=== PATIENT | female | born 1935 | race Caucasian/White ===

== ENCOUNTER 2020-01-23 14:51 | Outpatient (REF) | payer MEDICARE, SELFPAY ==
--- NOTE | 2020-01-26 08:59 | XR_ITS ---
EXAMINATION: XR LUMBOSACRAL SPINE CLINICAL INFORMATION: Low back pain. COMPARISON: 11/13/2019 lumbar spine radiographs. TECHNIQUE: Three views of the lumbosacral spine. FINDINGS: Mild thoracolumbar levoscoliosis is again seen with apex at L1. There is normal lumbar lordosis and spinal alignment. The patient is status post vertebroplasty at L1 without interval change. Mild vertebral body compression deformities at T11, T12 and L1 have not significantly changed. There is generalized osteopenia. Mild multilevel disc space narrowing is seen. The soft tissues are unremarkable. IMPRESSION: 1. Mild thoracolumbar levoscoliosis, multilevel degenerative changes, multilevel mild vertebral body compression deformities and L1 vertebroplasty without significant interval change.
== END 2020-01-23 14:52 | disposition home or self-care (01) ==
LOC: HO.HMGCX 14:51
PROVIDERS: PCP Internal Medicine; Visit Provider Hospitalist
DX: M54.5 Low back pain (principal)
CPT/HCPCS: 72100

== ENCOUNTER 2020-08-03 11:09 | Outpatient (REF) | payer MEDICARE, SELFPAY ==
--- NOTE | ~2020-08-03 | MM_ITS ---
EXAMINATION: MM SCREENING DIGITAL BREAST TOMOSYNTHESIS, BILATERAL CLINICAL INFORMATION: Screening. Asymptomatic. The lifetime risk of breast cancer based on the Tyrer-Cuzick Model is 1%. COMPARISON: Mammography: 07/04/2019, 02/13/2018 TECHNIQUE: Digital breast tomosynthesis is performed in both the craniocaudal and mediolateral oblique views along with computer-aided detection (CAD). Synthesized 2D images are generated from the tomosynthesis. FINDINGS: There are scattered areas of fibroglandular density (ACR BI-RADS breast composition Category b). There are no significant masses, abnormal calcifications, or other abnormalities. There are scattered bilateral round and vascular calcifications again seen. No significant changes. MM/MM tomosynthesis screening BI IMPRESSION: No mammographic evidence of malignancy. ASSESSMENT: BI-RADS 2: Benign RECOMMENDATION: Routine annual mammography screening. This patient's information was entered into a reminder system with a target due date for their next mammogram.
== END 2020-08-03 11:10 | disposition home or self-care (01) ==
LOC: HO.MAMMO 11:09
PROVIDERS: Visit Provider Internal Medicine
DX: Z12.31 Encounter for screening mammogram for malignant neoplasm of breast (principal)
CPT/HCPCS: 77063; 77067

== ENCOUNTER 2020-09-16 11:12 | Emergency (ER) | payer MEDICARE, SELFPAY ==
--- NOTE | ~2020-09-16 | XR_ITS ---
EXAMINATION: XR ELBOW, RIGHT CLINICAL INFORMATION: Fall, trauma, pain COMPARISON: Radiographs right humerus 09/24/2012 TECHNIQUE: Radiographs right elbow are obtained portably in 4 views. FINDINGS: Examination is limited due to portable technique, arm flexion, and overlying dressing. There is a comminuted intercondylar fracture distal humerus with vertically oriented component to the elbow joint and smaller comminuted fracture fragments. Major fracture fragments are distracted by at least 1 cm. The proximal radius and ulnar appear grossly intact. There is no dislocation. Old hardware again noted with intramedullary yoav in the humerus and distal interlocking screw. Humeral hardware is proximal to the acute humeral fracture. There is also plate and screws involving the proximal ulnar. XR/XR elbow RT 2V IMPRESSION: Comminuted intercondylar fracture distal humerus. Examination limitations.
--- NOTE | ~2020-09-16 | CT_ITS ---
EXAMINATION: CT HEAD WITHOUT CONTRAST CLINICAL INFORMATION: Fall, trauma COMPARISON: CT head noncontrast 09/17/2011. TECHNIQUE: Contiguous axial imaging was performed from the skull base to vertex without intravenous administration of contrast. Additional 2-D coronal and sagittal reformatted images are generated on the CT workstation and uploaded to PACS. This CT examination was performed using dose optimization techniques as appropriate, variously including the following: *Automated exposure control *Adjustment of mA and/or kV according to patient size (this includes techniques or standardized protocols for targeted exams where dose is matched to indication/reason for exam; i.e. extremities or head) *Use of iterative reconstruction technique DLP: 694 mGy-cm FINDINGS: There is no intracranial hemorrhage, hematoma, or extra-axial fluid collection. There are mild to moderate generalized atrophic changes with prominence of the cortical sulci, fissures, and cisterns. The ventricles are normal in size. There is no hydrocephalus. No edema or mass effect. There is scattered bilateral asymmetric periventricular white matter gliosis consistent with small vessel ischemic changes, greatest adjacent to the frontal horn. 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 There is no visible acute territorial infarct or mass lesion. The calvarium appears intact. There is no pneumocephalus or orbital emphysema. The visualized sinuses and middle ears and mastoid air cells show no significant mucosal thickening. There are no air-fluid levels. CT/CT head/brain wo con IMPRESSION: 1. No acute intracranial abnormality. 2. Atrophic changes with periventricular white matter gliosis.
--- NOTE | ~2020-09-16 | CT_ITS ---
EXAMINATION: CT CERVICAL SPINE WITHOUT CONTRAST CLINICAL INFORMATION: Fall, trauma, pain COMPARISON: CT had noncontrast 09/16/2020 TECHNIQUE: Multidetector volumetric CT imaging of the cervical spine is performed without contrast in the axial plane. Additional 2D reformatted coronal and sagittal images are generated on the CT workstation and uploaded to PACS. This CT examination was performed using dose optimization techniques as appropriate, variously including the following: *Automated exposure control *Adjustment of mA and/or kV according to patient size (this includes techniques or standardized protocols for targeted exams where dose is matched to indication/reason for exam; i.e. extremities or head) *Use of iterative reconstruction technique DLP: 193 mGy-cm FINDINGS: There is no vertebral compression fracture, fracture line, spondylolisthesis, or prevertebral soft tissue swelling. The craniocervical junction appears normal. The odontoid appears intact. There are degenerative changes between anterior arch C1 and the. Multilevel facet degeneration is present. There is no erosive change. No focal disc narrowing. There are degenerative changes involving the bilateral temporomandibular joints. There is apical pleural-parenchymal scarring. No pneumothorax or subcutaneous emphysema. CT/CT cervical spine wo con IMPRESSION: No acute bony abnormality or prevertebral soft tissue swelling.
[2020-09-16 11:17] VITALS: BP 220/109; BP 224/119; PULSE 87; PULSE 90; RESP 18; TEMP 37.2; O2SAT 94; O2SAT 95; BMI 24.7
--- NOTE | 2020-09-16 11:17 | ED_ITS ---
HPI - Fall General Chief Complaint: Fall Stated Complaint: [facility] FALL W/ELBOW PAIN Time Seen by Provider: 09/16/20 11:17 Source: patient and EMS Mode of arrival: EMS Limitations: no limitations History of Present Illness HPI Narrative: mechanical fall at fire station - injured R elbow already has plates/screws in forearm and yoav in R humerus - also struck head no AC therapy, no LOC MD complaint: fall Onset (ago): minute(s) Fall from: standing Fall witnessed: yes, by bystander Place fall occurred: other (dropping off thank you notes to Fire station) Loss of consciousness: none Prolonged down time: no Symptoms prior to fall: none Context: tripped/slipped Location of injury: head and face Location of injury - extremities: right: elbow Severity: severe Quality: sharp Associated symptoms (after fall): denies Related Data Home Medications Medication Instructions Recorded Confirmed amlodipine 5 mg tablet 5 mg PO DAILY 01/23/20 01/23/20 levothyroxine 50 mcg tablet 50 mcg PO DAILY 01/23/20 01/23/20 metoprolol succinate 25 mg 25 mg PO DAILY 01/23/20 01/23/20 tablet,extended release 24 hr metoprolol succinate 50 mg mg PO Q OTHER DAY PRN 01/23/20 01/23/20 tablet,extended release 24 hr oxycodone-acetaminophen 5 mg-325 tab PO 01/23/20 01/23/20 mg tablet pantoprazole 40 mg tablet,delayed 40 mg PO DAILY 01/23/20 01/23/20 release tramadol 50 mg tablet 50 mg PO Q6H PRN 01/23/20 01/23/20 Previous Rx's Medication Instructions Recorded atorvastatin 10 mg tablet 10 mg PO DAILY #90 tab 03/06/20 Allergies Allergy/AdvReac Type Severity Reaction Status Date / Time lisinopril [LISINOPRIL] Allergy Intermediate COUGH Unverified 01/08/20 14:46 amlodipine Allergy Unknown swelling Verified 11/13/19 00:00 Review of Systems Review of Systems: Constitutional : No Fever, No Chills ENT/Mouth : No Ear Pain, No Hoarseness, No sore throat Eyes: No Eye Pain, No Swelling, No Redness, No Foreign Body Cardiovascular : No Chest Pain, No SOB Respiratory : No Cough, No Dyspnea Gastrointestinal : No Nausea, No Vomiting, No Diarrhea, No abdominal Pain Genitourinary : No Dysuria, No Hematuria Musculoskeletal : positive joint pain, No Myalgias, No Joint Swelling Skin : pos Skin lacerations, No rash, pos abrasions Neuro : No Weakness, No Numbness, No Loss of Consciousness, No Dizziness, No Headache Psych : No Anxiety/Panic, No Depression Heme/Lymph: no easy bruising, no Lymphadenopathy Endocrine : No Polyuria, No Polydipsia All other systems reviewed and are negative [facility] Past Medical History Attestation statement: The following information was validated with the patient. Medical History (Updated 09/16/20 @ 13:43 by Brittany Krishnan DO) GERD (gastroesophageal reflux disease) HLD (hyperlipidemia) HTN (hypertension) Low back pain Social History Social History (Updated 09/16/20 @ 11:48 by Brittany Krishnan DO) Patient Tobacco Use Status: Never used Tobacco Use of substances other than those prescribed or required for medical reasons: No Advance Directives: Yes Advance Directives Information Provided: Yes Advance Directives on File: No Physical Exam Vital Signs: Vital Signs: Last Vital Signs Temp 98.9 F 09/16/20 11:17 Pulse 89 09/16/20 14:45 Resp 16 09/16/20 15:17 BP 190/90 H 09/16/20 14:45 Pulse Ox 96 09/16/20 14:45 Body Mass Index 24.7 Appearance: Alert. Oriented X3. Anxious in pain mild distress Eyes: Pupils equal, round and reactive to light. ENT: Pharynx normal. abrasions to forehead and R side of face Neck: Normal inspection. Neck supple. in c collar CVS: Normal heart rate and rhythm. Pulses normal. Respiratory: No respiratory distress. Breath sounds normal. no chest wall ttp Abdomen: Soft and nontender. Skin: Skin warm and dry. Normal skin color. Normal skin turgor. Extremities: No lower extremity edema. R elbow 5cm laceration/avulsion over olecranon with persistent bleeding and hard fragments seen and felt in wound Neuro: Oriented X 3. No motor deficit. No sensory deficit. Course Course Course Narrative: wound cleansed and irrigated with betadine extensively, sterile dressing and tammie wrap applied 117pm message sent to orthopedics given concern for open fracture Dr. Shaw reports patient needs to be transferred to tertiary center - [facility]opedics here cannot handle this type of injury [place] [facility] [place] repeat call to [facility] 245pm no call back from [facility] at this time will attempt to call [facility] for possible t ransfer 320pm patient would prefer this as her son works there, per staff in ED after calling transfer - [facility] cannot manage this either at this time repeat call to [facility] [place] 330pm they refuse transfer ED to ED until orthopedics calls back 353pm - spoke to patient and family I want to try [facility] which the patient doesn't want to go that far, family states they are attempting transfer to [facility] at this time again through her son. discussed again with orthopedics there they recommend transfer to [facility] 403pm discussed with Dr. Finnegan from orthopedics - recommends transfer to the ED now MDM - Fall MDM Narrative Medical decision making narrative: 84 yo female with mechanical fall resulting in head strike and R elbow laceration/avulsion with outward deformity noted along with prior hardware, labs, CT of head/neck for trauma given age, xrays of R elbow, IV dilaudid for pain, likely discussion with orthopedics given concern for open fracture Lab Data Result diagrams: 09/16/20 12:09 09/16/20 12:09 Labs: Lab Results 09/16/20 09/16/20 09/16/20 Range/Units 12:09 12:09 12:09 WBC 7.1 (4.8-10.8) X10*3/uL RBC 4.01 L (4.20-5.50) X10*6/uL Hgb 13.5 (12.0-16.0) g/dl Hct 39.3 (37-47) % MCV 98.0 (80-98) fL MCH 33.7 H (27.0-33.0) pg MCHC 34.4 (31.0-35.0) g/dl RDW 11.9 (11.0-16.0) % Plt Count 275 (160-400) X10*3/uL MPV 8.8 L (9.4-12.3) fL Immature Gran % (Auto) 0.3 (0.0-0.4) % Neut % (Auto) 60.3 (45-73) % Lymph % (Auto) 27.9 (20-40) % [place] % (Auto) 10.4 (2-11) % Eos % (Auto) 0.7 (0-4) % Baso % (Auto) 0.4 (0-2) % Lymph # (Auto) 2.0 (1.2-4.9) X10*3/uL [place] # (Auto) 0.7 (0.1-1.2) X10*3/uL Eos # (Auto) 0.1 (0.0-0.4) X10*3/uL Baso # (Auto) 0.0 (0.0-0.2) X10*3/uL Abs Immat Gran (auto) 0.02 (0.00-0.03) X10*3/uL Absolute Neuts (auto) 4.3 (2.0-8.3) X10*3/uL Absolute Nucleated RBC 0.000 (0.0-0.012) X10*3/uL Nucleated RBC % (auto) 0.0 (0.0-0.2) /100WBC PT 12.1 (10.8-13.0) SEC INR 1.0 (0.9-1.1) APTT 29.9 (24.1-38.0) SEC Sodium 137 (135-145) mmol/L Potassium 3.8 (3.3-5.1) mmol/L Chloride 102 (96-108) mmol/L Carbon Dioxide 25 (22-29) mmol/L Anion Gap 14 (12-20) BUN 9 (9-16) mg/dL Creatinine 0.69 (0.5-1.4) mg/dL Estim Creat Clear Calc 50.2 Estimated GFR > 60 Random Glucose 119 H (60-115) mg/dL Calcium 9.4 (8.4-10.2) mg/dL COVID-19 (GEOFFREY) (Negative) COVID-19 Clin Com 09/16/20 Range/Units 12:09 WBC (4.8-10.8) X10*3/uL RBC (4.20-5.50) X10*6/uL Hgb (12.0-16.0) g/dl Hct (37-47) % MCV (80-98) fL MCH (27.0-33.0) pg MCHC (31.0-35.0) g/dl RDW (11.0-16.0) % Plt Count (160-400) X10*3/uL MPV (9.4-12.3) fL Immature Gran % (Auto) (0.0-0.4) % Neut % (Auto) (45-73) % Lymph % (Auto) (20-40) % [place] % (Auto) (2-11) % Eos % (Auto) (0-4) % Baso % (Auto) (0-2) % Lymph # (Auto) (1.2-4.9) X10*3/uL [place] # (Auto) (0.1-1.2) X10*3/uL Eos # (Auto) (0.0-0.4) X10*3/uL Baso # (Auto) (0.0-0.2) X10*3/uL Abs Immat Gran (auto) (0.00-0.03) X10*3/uL Absolute Neuts (auto) (2.0-8.3) X10*3/uL Absolute Nucleated RBC (0.0-0.012) X10*3/uL Nucleated RBC % (auto) (0.0-0.2) /100WBC PT (10.8-13.0) SEC INR (0.9-1.1) APTT (24.1-38.0) SEC Sodium (135-145) mmol/L Potassium (3.3-5.1) mmol/L Chloride (96-108) mmol/L Carbon Dioxide (22-29) mmol/L Anion Gap (12-20) BUN (9-16) mg/dL Creatinine (0.5-1.4) mg/dL Estim Creat Clear Calc Estimated GFR Random Glucose (60-115) mg/dL Calcium (8.4-10.2) mg/dL COVID-19 (GEOFFREY) Negative (Negative) COVID-19 Clin Com See Note ECG Data Attestation: I personally reviewed and interpreted this ECG as follows: ECG interpretation date: 09/16/20 ECG interpretation time: 12:04 Interpretation: Rate: 71 Rhythm: NSR [place]: normal , LVH Normal P waves. Normal MICHAEL. Normal QRS complex. ST T wave : normal no PASCALE qTC: normal prior studies: no acute ischemia The study has been interpreted contemporaneously by me. . Critical Care Time Critical Care Time Critical Care Time: Yes Total Critical Care Time: 60 Attestation: medical consult, reassessments, transfer to tertiary care center I attest to this time spent taking care of the patient Discharge Plan Discharge Clinical Impression: Open fracture Fracture, humerus Qualifiers: Encounter type: initial encounter Humerus Location: distal Fracture type: open Laterality: right Patient Disposition: [facility] Transfer Details: [facility] Prescriptions: No Action atorvastatin 10 mg tablet 10 mg PO DAILY Qty: 90 RF: 3 metoprolol succinate 50 mg tablet extended release 24 hr PO Q OTHER DAY PRNRF: 0 pantoprazole 40 mg tablet,delayed release (DR/EC) 40 mg PO DAILY RF: 0 levothyroxine 50 mcg tablet 50 mcg PO DAILY RF: 0 oxycodone-acetaminophen 5-325 mg tablet PO RF: 0 tramadol 50 mg tablet 50 mg PO Q6H PRNRF: 0 amlodipine 5 mg tablet 5 mg PO DAILY RF: 0 metoprolol succinate 25 mg tablet extended release 24 hr 25 mg PO DAILY RF: 0
--- NOTE | 2020-09-16 11:27 | ECG_ITS ---
Test Reason : FALL Blood Pressure : / mmHG Vent. Rate : 071 BPM Atrial Rate : 071 BPM P-R Int : 180 ms QRS Dur : 086 ms QT Int : 422 ms P-R-T Axes : 058 022 036 degrees QTc Int : 458 ms Normal sinus rhythm Possible Left atrial enlargement Left ventricular hypertrophy Abnormal ECG When compared with ECG of 12-FEB-2012 06:48, No significant change was found Referred By: Brittany Krishnan Electronically Signed By:LIBAN PICKENS
[2020-09-16] MEDS: HYDROmorphone HCl 0.5 MG/0.5 ML SYRINGE IVPUSH ×2 (11:37→13:37)
[2020-09-16] MEDS: ondansetron HCL 4 MG/2 ML VIAL IVPUSH (11:37)
[2020-09-16] MEDS: Diphth,Pertus(ACell),Tet Adult 0.5 ML SYRINGE IM (11:39)
[2020-09-16 12:20] LABS: MANUAL DIFF FLAG NO
[2020-09-16 12:22] LABS: Basophils Percent Auto 0.4 % (0-2); Eosinophils Absolute Auto 0.1 X10*3/uL (0.0-0.4); Eosinophils Percent Auto 0.7 % (0-4); Hematocrit 39.3 % (37-47); Hemoglobin 13.5 g/dl (12.0-16.0); Imm Gran Abs Auto 0.02 X10*3/uL (0.00-0.03); Imm Gran Pct Auto 0.3 % (0.0-0.4); Lymphocytes Percent Auto 27.9 % (20-40); Mean Corpuscular HGB Conc 34.4 g/dl (31.0-35.0); Mean Corpuscular Hemoglobin 33.7 pg (27.0-33.0); Mean Platelet Volume 8.8 fL (9.4-12.3); Monocytes Absolute Auto 0.7 X10*3/uL (0.1-1.2); Monocytes Percent Auto 10.4 % (2-11); Neutrophils Absolute Auto 4.3 X10*3/uL (2.0-8.3); Neutrophils Percent Auto 60.3 % (45-73); Platelet Count 275 X10*3/uL (160-400); Red Blood Count 4.01 X10*6/uL (4.20-5.50); Red Cell Distribution Width 11.9 % (11.0-16.0); White Blood Count 7.1 X10*3/uL (4.8-10.8)
[2020-09-16 12:28] LABS: Prothrombin Time 12.1 SEC (10.8-13.0)
[2020-09-16 12:31] LABS: Partial Thromboplastin Time 29.9 SEC (24.1-38.0)
[2020-09-16 12:38] VITALS: BP 199/87; PULSE 85; RESP 18; O2SAT 95
[2020-09-16 12:42] LABS: COVID-19 Test Negative (Negative); IDNOW Serial# 08D9AD1C
[2020-09-16 12:55] LABS: Anion Gap 14 (12-20); Blood Urea Nitrogen 9 mg/dL (9-16); Calcium 9.4 mg/dL (8.4-10.2); Carbon Dioxide 25 mmol/L (22-29); Chloride 102 mmol/L (96-108); Creatinine Clr Calc Pharmacy 50.2; Estimated Glomerular Filt Rate > 60; Glucose Random 119 mg/dL (60-115); Potassium 3.8 mmol/L (3.3-5.1); Sodium 137 mmol/L (135-145)
--- NOTE | 2020-09-16 13:32 | PC.NURSE ---
dr arshad at bedside clenaing the right elbow, new dressing applied because it keeps bleeding through, new wrap applied with tammie wrap for extra pressure this time.
--- NOTE | 2020-09-16 14:04 | PC.NURSE ---
@[phone] DR WILLIS REQUESTS CALL OUT TO [facility] PT TX LINE BELLE ANSWERS, TAKES PT INFO AND CALL BACK NUMBER THEN ASKS TO SPEAK WITH DR ALBA WILLIS TAKES OVER CALL RIGHT AWAY
--- NOTE | 2020-09-16 14:17 | PC.NURSE ---
pt is on bedpan, plan to transfer to [facility]. awaiting accepting physician and RN To rn
[2020-09-16 14:45] VITALS: BP 190/90; PULSE 89; RESP 18; O2SAT 96
--- NOTE | 2020-09-16 14:47 | PC.NURSE ---
PT'S FINGER ARE SLIGHTLY PURPLE/REDISH IN COLOR, HAND ELEVATED O A PILLOW, GOOD BRISK CAPILLARY REFILL. MD RICO
--- NOTE | 2020-09-16 14:47 | PC.NURSE ---
@[phone] DR WILLIS REQUEST CALL OUT TO [facility] PT TX LINE TO CHECK ON STATUS OF PREVIOUS CALL BELLE ANSWERS AND SAYS SHE WILL PLACE ANOTHER PAGE OUT TO THEIR ORTHO
--- NOTE | 2020-09-16 15:09 | PC.NURSE ---
PERRY WRAP REMOVED PER DR WILLIS VERBAL ORDER
[2020-09-16 15:17] VITALS: RESP 16
[2020-09-16] MEDS: HYDROmorphone HCl 1 MG/ML SYRINGE IVPUSH (15:17)
== END 2020-09-16 16:34 | disposition short-term general hospital (02) ==
PROVIDERS: Emergency Provider Emergency Medicine
DX: S42.401B Unspecified fracture of lower end of right humerus, initial encounter for open fracture (principal); S00.90XA Unspecified superficial injury of unspecified part of head, initial encounter; M25.521 Pain in right elbow; M54.2 Cervicalgia; W01.0XXA Fall on same level from slipping, tripping and stumbling without subsequent striking against object, initial encounter; Y93.9 Activity, unspecified; Y92.410 Unspecified street and highway as the place of occurrence of the external cause; Y99.9 Unspecified external cause status; Z20.822 Contact with and (suspected) exposure to COVID-19; Z79.899 Other long term (current) drug therapy
CPT/HCPCS: 36415; 70450; 72125; 73070; 80048; 85025; 85610; 85730; 87635; 90471; 90715; 93005; 96365; 96375; 96376; 99284; J0690; J1170; J2405

== ENCOUNTER 2021-02-11 10:10 | Outpatient (REF) | payer MEDICARE, SELFPAY ==
--- NOTE | 2021-02-11 13:25 | MHC.AU.ANR ---
Adult Audiological Evaluation Date of Visit: 02/11/21 Reason for Appointment: Audiological evaluation due to concern for decreased hearing. Ms. Penaloza reports that her family has noticed a decrease in her hearing. She often has to ask for repetition and her family tells her the TV is very loud. Ms. Penaloza also reports constant bilateral tinnitus that she feels is worse at night. She notes that the tinnitus began a long time ago and she is typically able to ignore it. Does patient feel they have a hearing loss?: Yes If Yes, Which Ear?: Both Ears When Was Hearing Difficulty First Noticed?: ~1 year ago Has hearing been tested previously?: No Hearing Handicap Inventory: HHIE SCORE: 18 Based on HHIE score, patient has: Mild to moderate perceived hearing handicap Ear History: Bothersome Tinnitus/Ringing/Noises in Ears: Both Ears Medical History: Medical History: High Blood Pressure, Thyroid Disease Medical History (Other): Cataract and toric lens surgery left eye in 2012; Stomach ulcer bleed, hospitalized in ICU, cauterized, in 2006; Right elbow surgery in 1999; Right arm/shoulder surgery in 2011; Broken left arm in 2014; Total right knee replacement in 2006; Arthroscopic surgery left knee 2000; Cortisone shot left knee 2001; Compression fracture of the back in 2017; Upper GI endoscopy; Broken collar bone from a fall in 2019; 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 2019; Fall, resulting in broken right elbow and fractured back on 09/16/20 Medication List: Metoprolol 50 mg, Levothyroxine .05 mg; Atorvastatin 10 mg; Pantoprazole 40 mg, Centrum Silver; Glucosamine; Citrical Otoscopy: Right Ear: Unremarkable Left Ear: Unremarkable Tympanometry: Tympanometry performed due to: To assess integrity of the middle ear system Right Ear: Negative Middle Ear Pressure (Type C) Left Ear: Negative Middle Ear Pressure (Type C) Hearing Evaluation: Transducer(s) Used: Insert Earphones, Bone Conduction Method: Conventional Audiometry Stimuli Used: Pure Tones Right Ear: Description of Hearing: Normal hearing at 250 Hz, sloping to a mild to severe sensorineural hearing loss from 500-8000 Hz. Left Ear: Description of Hearing: Normal hearing at 250 Hz, sloping to a mild to severe sensorineural hearing loss from 500-8000 Hz. Speech Recognition Threshold (SRT): Method Used: Monitored Live Voice Stimuli Used: Spondee Words Right Ear: 35 dBHL Left Ear: 40 dBHL Word Discrimination: Method: Recorded Lists Word Lists Used: NU-6 Right Ear: 92% at 80 dBHL Left Ear: 92% at 80 dBHL Recommendations: Audiological re-evaluation in one year. Trial with amplification is recommended. Medical clearance from a physician is required before fitting. Hearing Aid Fitting will be scheduled when all materials arrive. Ms. Penaloza is considered a good candidate for hearing aid use based on the type and degree of her hearing loss. Discussed hearing aid options. She would like to purchase rechargeable in-the-ear style hearing aids. Earmold impressions were taken without incident. Hearing aids are being ordered and she will be contacted to schedule a hearing aid fitting when they arrive. Diagnosis: Primary Diagnosis: H90.3 Bilateral Sensorineural Hearing Loss Services Performed: Services Performed: Comprehensive Audiological Evaluation (CPT 30499) Tympanometry (CPT 18913) Signature: Provider: Trena Stewart, CCC-A
--- NOTE | 2021-02-11 13:33 | MHC.AU.MED ---
Medical Clearance for Hearing Instrumentation Date: 02/11/21 Patient Name: Lupe Penaloza Date of : 1935 Primary Care Provider: Referring Provider: Janessa Devlin NP We have seen your patient on 02/11/21 and have determined that they are a candidate for amplification (See accompanying report). Specifically, they would benefit from: Hearing aid use in both ears There is a statute that addresses Medical Evaluation Requirements prior to fitting a patient with a hearing aid. According to [place] statute 265 CMR:6.03(1), (a) General. Except as provided in 265 CMR 6.03(1)(b), a hearing screen coordinator shall not sell a hearing aid unless the prospective user has presented to the hearing screen coordinator a written statement signed by a licensed physician that states that the patient's hearing loss has been medically evaluated and the patient may be considered a candidate for a hearing aid. The medical evaluation must have taken place within the preceding six months. Please note: Due to the [place] Statute referenced above, we cannot accept a signature other than that of a licensed physician. DIRECTOR E LEARNING and PA signatures cannot be accepted. I am in agreement with the above recommendation. There is no medical contraindication for hearing instrumentation. Physician Signature Date Physician Name (Printed)
== END 2021-02-11 10:11 | disposition home or self-care (01) ==
LOC: HO.SH 10:10
PROVIDERS: Visit Provider Registered Nurse
DX: H90.3 Sensorineural hearing loss, bilateral (principal)
CPT/HCPCS: 92557; 92567

== ENCOUNTER 2021-02-11 11:33 | Outpatient (REF) | payer SELFPAY ==
--- NOTE | 2021-02-11 13:32 | MHC.AU.HAS ---
Hearing Aid Evaluation Date of Visit: 02/11/21 Historical Information: Description of Hearing: Mild sloping to severe sensorineural hearing loss bilaterally. Current personal amplification information, if applicable: None Summary: Binaural amplification is recommended to help facilitate improved communication based on the type and degree of Ms. Penaloza's hearing loss. She has not previously used hearing aids. Discussed hearing aid styles and technologies at length. She feels that ITE style hearing aids would work best for her. She is interested in rechargeability. She uses a flip phone and is not interested in any Bluetooth connectivity. Hearing Aid Prescription: Based on the individual?s shared listening needs, communication environments, dexterity, desire for connectivity, and personal preferences, the following prescription for amplification has been made: Right ear: School Adjustment Counselor: [employer] Model: Evolv AI 200 ITC-R Battery Size: Rechargeable Color: [place] Left ear: Left ear prescription to be same as Right Hearing Aid above: School Adjustment Counselor: [employer] Model: Evolv AI 2000 ITC-R Battery Size: Rechargeable Color: [place] Plan of Care: Earmold Impressions Taken. Medical Clearance to be requested from PCP/ENT. Hearing Instrument Fitting to be scheduled when materials arrive. Hearing aids ordered today. Patient paid $350 nonrefundable deposit. Primary Diagnosis: H90.3 Bilateral Sensorineural Hearing Loss Signature: Provider: Trena Stewart, MELVIN-A
== END 2021-02-11 11:34 | disposition home or self-care (01) ==
LOC: HO.HAP 11:33
PROVIDERS: PCP Registered Nurse; Visit Provider Registered Nurse
DX: Z46.1 Encounter for fitting and adjustment of hearing aid (principal); H90.3 Sensorineural hearing loss, bilateral
CPT/HCPCS: 92591

== ENCOUNTER 2021-02-24 09:31 | Outpatient (REF) | payer SELFPAY | END 2021-02-24 09:32 | disposition home or self-care (01) | LOC: HO.HAP 09:31 | PROVIDERS: Visit Provider Internal Medicine | DX: Z46.1 Encounter for fitting and adjustment of hearing aid (principal); H90.3 Sensorineural hearing loss, bilateral | CPT/HCPCS: V5260; V5299 ==

== ENCOUNTER 2021-03-10 08:59 | Outpatient (REF) | payer SELFPAY | END 2021-03-10 09:00 | disposition home or self-care (01) | LOC: HO.HAP 08:59 | PROVIDERS: Visit Provider Registered Nurse | DX: Z13.89 Encounter for screening for other disorder (principal) ==

== ENCOUNTER 2021-12-28 15:43 | Outpatient (REF) | payer SELFPAY | END 2021-12-28 15:44 | disposition home or self-care (01) | LOC: HO.HAP 15:43 | PROVIDERS: Visit Provider Registered Nurse | DX: Z13.89 Encounter for screening for other disorder (principal) ==

== ENCOUNTER 2022-06-28 20:28 | Emergency (ER) | payer MEDICARE, SELFPAY ==
--- NOTE | ~2022-06-28 | CT_ITS ---
EXAMINATION: CT cervical spine wo IV con, CT head/brain wo IV con INDICATION INFORMATION: Reason for Exam Fall COMPARISON: CT head without contrast 09/16/2020 TECHNIQUE: Separate noncontrast CT examinations of the head and cervical spine were performed. Coronal and sagittal images were created for each examination at the technologist workstation. This CT examination was performed using dose optimization techniques as appropriate, variously including the following: *Automated exposure control *Adjustment of mA and/or kV according to patient size (this includes techniques or standardized protocols for targeted exams where dose is matched to indication/reason for exam; i.e. extremities or head) *Use of iterative reconstruction technique DLP: 992.39 mGy-cm FINDINGS: Head: No acute osseous or soft tissue abnormality. The mastoid air cells and visualized portions of the paranasal sinuses are well aerated. There is no evidence of acute intracranial hemorrhage or territorial infarction. No abnormal mass effect or midline shift is seen. [place] to white matter differentiation is well preserved. No extra-axial fluid collections are identified. No hydrocephalus. Proportional prominence of the ventricles and sulcal spaces is consistent with mild volume loss. Patchy periventricular and deep white matter hypoattenuation is consistent with moderate small vessel ischemic changes. Cervical spine: There is no evidence of acute cervical spine fracture. Vertebral bodies remain normal in height. Stable multilevel cervical spondylosis. No pre- or paravertebral soft tissue abnormality is identified. Visualized portions of the lung apices are unremarkable. The thyroid gland is unremarkable. CT/CT cervical spine wo IV con IMPRESSION: 1. No acute intracranial abnormality. 2. No cervical spine fracture or traumatic malalignment.
--- NOTE | ~2022-06-28 | XR_ITS ---
EXAMINATION: XR HIP, RIGHT CLINICAL INFORMATION: Fall. COMPARISON: 10/11/2019 TECHNIQUE: AP and frog-leg lateral views of the right hip. AP view of the pelvis. FINDINGS: Mild axial joint space narrowing at both hips with small marginal osteophytes. No fracture or malalignment. Bones are osteopenic. Mild osteoarthritis noted in the SI joints. There is degenerative spondylosis in the lower lumbar spine. No acute osseous findings. Calcific atherosclerosis is present in the femoral arteries. XR/XR hip RT w [id number] IMPRESSION: 1. No acute fracture or malalignment. 2. Mild osteoarthritis in the hips and SI joints.
[2022-06-28 20:45] VITALS: BP 161/80; PULSE 97; RESP 16; O2SAT 94; BMI 23.6
--- NOTE | 2022-06-28 21:55 | ED_ITS ---
HPI - Extremity Injury (Lower) General Chief Complaint: Extremity Injury, Lower Stated Complaint: RIGHT HIP PAIN Time Seen by Provider: 06/28/22 20:55 Source: patient Mode of arrival: ambulatory Limitations: no limitations History of Present Illness HPI Narrative: 86-year-old female presents to the emergency room after falling to her right hip yesterday. She states she has had continued pain she states she was going to deliver a cake to a neighbor when she fell onto her right knee she states that since then she has had increasing pain to the hip and said come in for evaluation she denies hitting her head she denies loss conscious denies nausea vomiting or diarrhea. MD complaint: hip injury Related Data Home Medications Medication Instructions Recorded Confirmed amlodipine 5 mg tablet 5 mg PO DAILY 01/23/20 01/23/20 metoprolol succinate 25 mg 25 mg PO DAILY 01/23/20 01/23/20 tablet,extended release 24 hr metoprolol succinate 50 mg mg PO Q OTHER DAY PRN 01/23/20 01/23/20 tablet,extended release 24 hr oxycodone-acetaminophen 5 mg-325 tab PO 01/23/20 01/23/20 mg tablet pantoprazole 40 mg tablet,delayed 40 mg PO DAILY 01/23/20 01/23/20 release tramadol 50 mg tablet 50 mg PO Q6H PRN 01/23/20 01/23/20 Previous Rx's Medication Instructions Recorded atorvastatin 10 mg tablet 10 mg PO DAILY #90 tabs 03/06/20 levothyroxine 50 mcg tablet 50 mcg PO DAILY #90 tabs 06/02/21 Allergies Allergy/AdvReac Type Severity Reaction Status Date / Time lisinopril [LISINOPRIL] Allergy Intermediate COUGH Verified 06/28/22 20:44 amlodipine Allergy Unknown swelling Verified 06/28/22 20:44 Review of Systems Review of Systems: Review of systems: General: Patient denies any fever chills recent illness or falls Musculoskeletal: Denies back pain or body aches or other injuries HEENT: denies headache, runny nose, ear pain Respiratory: denies shortness of breath, cough Cardiovascular: no chest pain or palpitations : denies dysuria, frequency Abdomen: no nausea vomiting denies abdominal pain Extremities: no swelling, right hip pain Skin: no diaphoresis Yes all other systems are reviewed and are negative [facility] Past Medical History Medical History (Updated 06/28/22 @ 21:58 by Nathan Kay DO) GERD (gastroesophageal reflux disease) HLD (hyperlipidemia) HTN (hypertension) Low back pain Social History Social History (Updated 09/16/20 @ 11:48 by Savannah Krishnan DO) Patient Tobacco Use Status: Never used Tobacco Advance Directives: Yes Advance Directives Information Provided: No Advance Directives on File: No Physical Exam Vital Signs: Vital Signs: Last Vital Signs Pulse 97 06/28/22 20:45 Resp 16 06/28/22 20:45 BP 161/80 H 06/28/22 20:45 Pulse Ox 94 06/28/22 20:45 O2 Del Method 06/28/22 20:45 BMI result Body Mass Index 23.6 General: Well-appearing well-nourished in no signs of distress HEENT: Normocephalic atraumatic Neck: No signs of JVD, no masses no tenderness or lymphadenopathy Cardiovascular: Regular rate and rhythm Respiratory: Clear to auscultation bilaterally Abdomen: Soft nontender no masses Extremities: Normal pedal pulses no signs of edema no tenderness to palpation able to lift up both legs Skin: Dry warm no rashes Back: No tenderness full ROM Medical Decision Making Differential Diagnosis Differential Diagnoses: The differential diagnosis associated with the presentation includes Concern for hip fracture versus contusion the patient for an x-ray Independent Interpretation I performed an independent interpretation of an: Plain X-Ray and CT Scan Radiology Impression Discussion of test interpretation with radiology: I have reviewed the radiologist's reading. Independent Historian Clinical information obtained from an independent historian. History obtained from or confirmed by: Other External Record Review External record reviewed: Inpatient record Discharge Plan Discharge Clinical Impression: Hip strain, Fall Patient Disposition: Home, Self-Care Instructions: Fall Prevention (ED), Groin Strain (ED), Hip Contusion (ED) Additional Instructions: You were seen today in the emergency department or it right hip. He had an x-ray and CTs done all were negative. Paragraph please take Tylenol ibuprofen for pain if you have any other further complaints or concerns please do not hesitate to return to the emergency department. Prescriptions: No Action atorvastatin 10 mg tablet 10 mg PO DAILY Qty: 90 3RF levothyroxine 50 mcg tablet 50 mcg PO DAILY Qty: 90 3RF metoprolol succinate 50 mg tablet extended release 24 hr PO Q OTHER DAY PRN pantoprazole 40 mg tablet,delayed release (DR/EC) 40 mg PO DAILY oxycodone-acetaminophen 5-325 mg tablet PO tramadol 50 mg tablet 50 mg PO Q6H PRN amlodipine 5 mg tablet 5 mg PO DAILY metoprolol succinate 25 mg tablet extended release 24 hr 25 mg PO DAILY
== END 2022-06-28 22:16 | disposition home or self-care (01) ==
PROVIDERS: Emergency Provider Student in an Organized Health Care Education/Training Program; PCP Registered Nurse
DX: S76.011A Strain of muscle, fascia and tendon of right hip, initial encounter (principal); W01.0XXA Fall on same level from slipping, tripping and stumbling without subsequent striking against object, initial encounter; E78.5 Hyperlipidemia, unspecified; I10 Essential (primary) hypertension; Z79.02 Long term (current) use of antithrombotics/antiplatelets; Z79.899 Other long term (current) drug therapy; Y93.89 Activity, other specified; Y92.480 Sidewalk as the place of occurrence of the external cause; Y99.9 Unspecified external cause status
CPT/HCPCS: 70450; 72125; 73502; 99282; 99284

== ENCOUNTER 2022-07-25 19:33 | Emergency (ER) | payer MEDICARE, SELFPAY ==
--- NOTE | ~2022-07-25 | CT_ITS ---
EXAMINATION: CT ABDOMEN AND PELVIS WITHOUT CONTRAST CLINICAL INFORMATION: Left flank pain. Spine pain. COMPARISON: Lumbar spine 11/13/2019 TECHNIQUE: Multidetector volumetric imaging was performed from the superior aspect of the liver through the pubic symphysis. Sagittal and coronal reformatted images were obtained on the technologist's workstation. This CT examination was performed using dose optimization techniques as appropriate, variously including the following: *Automated exposure control *Adjustment of mA and/or kV according to patient size (this includes techniques or standardized protocols for targeted exams where dose is matched to indication/reason for exam; i.e. extremities or head) *Use of iterative reconstruction technique DLP: 427 mGy-cm FINDINGS: LUNG BASES: Heart size enlarged. No pericardial effusion. Lung bases normally aerated. LIVER, GALLBLADDER, AND BILIARY TREE: The liver is normal in size, shape, and attenuation. No focal hepatic lesion or biliary ductal dilatation is present. The gallbladder is unremarkable with no evidence of radiopaque gallstones, gallbladder wall thickening, or obvious pericholecystic inflammatory changes. PANCREAS: Unremarkable. SPLEEN: Unremarkable. ADRENAL GLANDS: Unremarkable. KIDNEYS AND URETERS: The kidneys are normal in size, shape, and attenuation. No hydronephrosis, hydroureter, or calculi seen. No perinephric stranding. BLADDER: Unremarkable. GASTROINTESTINAL TRACT: There are numerous diverticula of the sigmoid colon. There is no diverticulitis. There is no bowel wall thickening /edema. There is no bowel obstruction. There is a moderate volume of stool in the colon. The appendix is normal . The small bowel loops are unremarkable. The stomach is normal. There is no hiatal hernia. ABDOMINAL WALL: No significant hernia is appreciated. LYMPH NODES: Normal. VASCULAR: Vascular calcifications throughout the abdomen and the pelvis. No aneurysm of aorta. PELVIC VISCERA: Uterus is anteverted. Uterus is atrophic. No adnexal abnormality. OSSEOUS STRUCTURES: There is osteopenia. There is compression deformity of L2 vertebrae. There is compression of the inferior and superior endplate centrally. There is about 50% loss of height of the vertebral body. This is new since the exam of 11/13/2019 but otherwise indeterminate for age. Correlate with history. Status post thoracoplasty L1 vertebrae. This is similar to the prior study of 11/13/2019. There is a mildly displaced fracture which is comminuted the right superior and the inferior pubic ramus.. There is callus formation around these fracture sites indicate these are subacute fractures. CT/CT abdomen pelvis wo IV con IMPRESSION: 1. No acute abnormality the abdomen or pelvis. 2. Compression deformity of L2 vertebrae new since 11/13/2019 but otherwise indeterminate for age. Correlate with history. 3. Subacute fractures of the right superior and inferior pubic ramus. 4. Status post thoracoplasty L1 vertebrae. 5. Diverticulosis of colon. No acute abnormality of the bowel. Fleischner guidelines were followed.
[2022-07-25 19:51] VITALS: BP 146/78; PULSE 90; RESP 16; TEMP 36.6; O2SAT 97; BMI 24.3
--- NOTE | 2022-07-25 19:56 | ED.BACK ---
HPI - Back Pain/Injury General Chief Complaint: Back Pain/Injury <ADELE Haro - Last Filed: 07/25/22 19:58> Stated Complaint: L hip pain <ADELE Haro - Last Filed: 07/25/22 19:58> Time Seen by Provider: 07/25/22 21:28 <ADELE Haro - Last Filed: 07/25/22 19:58> Source: patient, family (Patient's son), RN notes reviewed and old records reviewed <Anish Cadena - Last Filed: 07/25/22 22:42> Mode of arrival: wheelchair <Anish Cadena - Last Filed: 07/25/22 22:42> Limitations: no limitations <Anish Cadena - Last Filed: 07/25/22 22:42> History of Present Illness HPI Narrative: 86-year-old female presents for evaluation of left lower back pain that radiates to her left buttocks She reports the pain started 4 days ago and has been getting progressively worse She is able to ambulate but with some pain Denies any falls in the last few weeks Denies any weakness, numbness, tingling The patient was here 1 month ago for a fall and had x-rays of her pelvis and CT scans of the head and neck did not show any traumatic injuries Patient has been taking Tylenol extra-strength without any improvement in her symptoms <Anish Cadena - Last Filed: 07/25/22 22:42> Related Data Home Medications: Home Medications Medication Instructions Recorded Confirmed amlodipine 5 mg tablet 5 mg PO DAILY 01/23/20 01/23/20 metoprolol succinate 25 mg 25 mg PO DAILY 01/23/20 01/23/20 tablet,extended release 24 hr metoprolol succinate 50 mg mg PO Q OTHER DAY PRN 01/23/20 01/23/20 tablet,extended release 24 hr oxycodone-acetaminophen 5 mg-325 tab PO 01/23/20 01/23/20 mg tablet pantoprazole 40 mg tablet,delayed 40 mg PO DAILY 01/23/20 01/23/20 release tramadol 50 mg tablet 50 mg PO Q6H PRN 01/23/20 01/23/20 Previous Rx's Medication Instructions Recorded atorvastatin 10 mg tablet 10 mg PO DAILY #90 tabs 03/06/20 levothyroxine 50 mcg tablet 50 mcg PO DAILY #90 tabs 06/02/21 dexamethasone 4 mg tablet 4 mg PO BID #4 tabs 07/25/22 oxycodone 5 mg tablet 2.5 mg PO TID PRN severe pain 07/25/22 (scale score 7-10) #20 tabs levofloxacin 250 mg tablet 250 mg PO DAILY 5 days #5 tabs 08/01/22 <ADELE Haro - Last Filed: 07/25/22 19:58> Allergies/Adverse Reactions: Allergies Allergy/AdvReac Type Severity Reaction Status Date / Time lisinopril [LISINOPRIL] Allergy Intermediate COUGH Verified 07/25/22 19:50 amlodipine Allergy Unknown swelling Verified 07/25/22 19:50 <ADELE Haro Last Filed: 07/25/22 19:58> Review of Systems Constitutional: Constitutional: Reports as per HPI, Denies chills, Denies fatigue, Denies fever(s) and Denies headache(s) <Anish Cadena - Last Filed: 07/25/22 22:42> ENT: Denies headache(s) <Anish Cadena - Last Filed: 07/25/22 22:42> Cardiovascular: Cardiovascular: Denies chest pain and Denies dyspnea <Anish Cadena - Last Filed: 07/25/22 22:42> Respiratory: Respiratory: Denies cough and Denies dyspnea <Anish Cadena - Last Filed: 07/25/22 22:42> Gastrointestinal: Gastrointestinal: Denies abdominal pain, Denies constipation and Denies vomiting <Anish Cadena - Last Filed: 07/25/22 22:42> Genitourinary: Genitourinary: Denies dysuria <Anish Cadena - Last Filed: 07/25/22 22:42> Musculoskeletal: Musculoskeletal: Reports back pain <Anish Cadena - Last Filed: 07/25/22 22:42> Neurologic: Denies headache(s) and Denies focal weakness <Anish Cadena - Last Filed: 07/25/22 22:42> Endocrine: Endocrine: Denies fatigue <Anish Cadena - Last Filed: 07/25/22 22:42> [facility] Past Medical History Medical History: Medical History (Updated 07/26/22 @ 00:01 by Bernardino Stacy) GERD (gastroesophageal reflux disease) HLD (hyperlipidemia) HTN (hypertension) Low back pain <ADELE Haro - Last Filed: 07/25/22 19:58> Social History Social History: Social History (Updated 09/16/20 @ 11:48 by Savannah Krishnan DO) Patient Tobacco Use Status: Never used Tobacco Advance Directives: No Advance Directives Information Provided: No <ADELE Haro - Last Filed: 07/25/22 19:58> Physical Exam Vital Signs: Vital Signs: Last Vital Signs Temp 98 F 07/25/22 19:51 Pulse 90 07/25/22 19:51 Resp 16 07/25/22 19:51 BP 146/78 H 07/25/22 19:51 Pulse Ox 97 07/25/22 19:51 O2 Del Method Room Air 07/25/22 19:51 BMI result Body Mass Index 24.3 <ADELE Haro - Last Filed: 07/25/22 19:58> Vital Signs: Last Vital Signs Temp 98 F 07/25/22 19:51 Pulse 90 07/25/22 19:51 Resp 16 07/25/22 19:51 BP 146/78 H 07/25/22 19:51 Pulse Ox 97 07/25/22 19:51 O2 Del Method Room Air 07/25/22 19:51 BMI result Body Mass Index 24.3 <Anish Cadena - Last Filed: 07/25/22 22:42> Vital Signs: Last Vital Signs Temp 98 F 07/25/22 19:51 Pulse 90 07/25/22 19:51 Resp 16 07/25/22 19:51 BP 146/78 H 07/25/22 19:51 Pulse Ox 97 07/25/22 19:51 O2 Del Method Room Air 07/25/22 19:51 BMI result Body Mass Index 24.3 <ADELE Smart - Last Filed: 08/01/22 15:37> Const: General: healthy appearing, comfortable, no acute distress, alert and awake <Anish Cadena - Last Filed: 07/25/22 22:42> Nutritional Appearance: well nourished <Anish O Last Filed: 07/25/22 22:42> Orientation/consciousness: patient oriented x3 <Anish Last Filed: 07/25/22 22:42> HEENT: Head: Yes normocephalic and Yes atraumatic <Anish Last Filed: 07/25/22 22:42> Throat: Yes posterior oropharynx normal < Last Filed: 07/25/22 22:42> Eyes: Eyelids: Yes eyelids normal <Anish Last Filed: 07/25/22 22:42> Conjunctivae: conjunctivae normal <Anish Last Filed: 07/25/22 22:42> Sclerae: sclerae normal <Anish Last Filed: 07/25/22 22:42> Corneas: corneas normal <Anish Last Filed: 07/25/22 22:42> Pupils: Equal, round and reactive pupils present <Anish Last Filed: 07/25/22 22:42> EOM: EOMs intact bilaterally <Anish Last Filed: 07/25/22 22:42> Neck: Neck: Yes full ROM <Anish Last Filed: 07/25/22 22:42> Resp: Effort & Inspection: normal respiratory effort, able to speak in complete sentences, no audible wheezes and not labored <Anish Last Filed: 07/25/22 22:42> Auscultation: clear to auscultation bilaterally <Anish Last Filed: 07/25/22 22:42> Cardio: Rate: regular rate <Anish Last Filed: 07/25/22 22:42> Rhythm: regular rhythm <Anish Last Filed: 07/25/22 22:42> GI: Inspection: No distended < Last Filed: 07/25/22 22:42> Palpation (GI): Soft to palpation, not firm, nontender, no guarding and not rigid <Anish Cadena - Last Filed: 07/25/22 22:42> Auscultation: normoactive bowel sounds <Anish Cadena - Last Filed: 07/25/22 22:42> Back/Spine/Pelvis: Other: Tenderness in the left lumbar sacral region without any palpable deformity. Straight leg raise positive on left. <Anish Cadena - Last Filed: 07/25/22 22:42> Skin: General skin exam: no rashes or lesions noted and elasticity normal <Anish Cadena - Last Filed: 07/25/22 22:42> Neuro: General: patient oriented x3 <Anish Cadena Last Filed: 07/25/22 22:42> Cranial nerves: Yes CN's II-XII intact bilaterally, Yes Equal, round and reactive pupils present and Yes Bilaterally intact EOM present <Anish Cadena Last Filed: 07/25/22 22:42> Cognition (Neuro): normal cognition <Anish Cadena Last Filed: 07/25/22 22:42> Course Course Course Narrative: This is an RME: Additional HPI, ROS, PE not included below will be deferred to primary provider. 86-year-old female history of GERD, hyperlipidemia, hypertension presenting with left-sided flank pain since Sunday constant nature, worse with movement better at rest. Patient states she feels like she is unable to walk. She had a fall a few weeks ago and since then has been struggling. Patient has never had issues with her kidneys denies any urinary symptoms. She does have a history of osteoporosis and is worried about her spine. She denies numbness and tingling. Patient denies saddle paresthesias, fevers, chills, weakness, urinary/ bowel incontinence /retention. Physical exam with pain with palpation to left side of lumbar paraspinous muscles. No midline tenderness. Patient appears uncomfortable. Plan CT of the abdomen and pelvis looking at the spine and left flank region. Basic labs, urine. <ADELE Haro - Last Filed: 07/25/22 19:58> This is an RME: Additional HPI, ROS, PE not included below will be deferred to primary provider. 86-year-old female history of GERD, hyperlipidemia, hypertension presenting with left-sided flank pain since Sunday constant nature, worse with movement better at rest. Patient states she feels like she is unable to walk. She had a fall a few weeks ago and since then has been struggling. Patient has never had issues with her kidneys denies any urinary symptoms. She does have a history of osteoporosis and is worried about her spine. She denies numbness and tingling. Patient denies saddle paresthesias, fevers, chills, weakness, urinary/ bowel incontinence /retention. Physical exam with pain with palpation to left side of lumbar paraspinous muscles. No midline tenderness. Patient appears uncomfortable. Plan CT of the abdomen and pelvis looking at the spine and left flank region. Basic labs, urine. Patient had urine culture come back positive for Pseudomonas, called patient who has no symptoms of UTI and discussed with attending Dr. Aleman who advised treat with Levaquin for Pseudomonas in urine culture and I called in prescription for 250 mg for 5 days of Levaquin to [facility] <ADELE Smart - Last Filed: 08/01/22 15:37> Medical Decision Making Medical Decision Making [facility] Narrative: 86-year-old female presents for evaluation of left hip pain. She had a fall 1 month ago in which she had significant pain and bruising on the right side. She states that she has been over compensating by walking, favoring her right side. The patient denies any other injuries. Her workup is largely unremarkable with exception of indeterminate L2 vertebral fracture and subacute pubic rami fracture. I discussed these findings with the patient and the patient's son. We will treat the patient with Decadron x2 days and oxycodone 2.5 mg. I did discuss side effects of both his medications the patient and her son. <Anish Cadena - Last Filed: 07/25/22 22:42> Differential Diagnosis Radiculopathy Back pain Sciatica Disc herniation Vertebral fracture <Anish Cadena - Last Filed: 07/25/22 22:42> Lab Data [facility] Lab Attestation statement: I reviewed the patient's lab results. <Anish Cadena - Last Filed: 07/25/22 22:42> No significant lab abnormalities. <Anish Cadena - Last Filed: 07/25/22 22:42> Result Diagrams: 07/25/22 20:18 07/25/22 20:18 <ADELE Haro - Last Filed: 07/25/22 19:58> Labs: Lab Results 07/25/22 07/25/22 07/25/22 Range/Units 20:18 20:18 20:18 WBC 6.9 (4.8-10.8) X10*3/uL RBC 4.01 L (4.20-5.50) X10*6/uL Hgb 13.3 (12.0-16.0) g/dl Hct 39.1 (37.0-47.0) % MCV 97.5 (80.0-98.0) fL MCH 33.2 H (27.0-33.0) pg MCHC 34.0 (31.0-35.0) g/dl RDW 12.1 (11.0-16.0) % Plt Count 301 (160-400) X10*3/uL MPV 9.2 L (9.4-12.3) fL Immature Gran % (Auto) 0.1 (0.0-0.4) % Neut % (Auto) 46.5 (45-73) % Lymph % (Auto) 38.5 (20-40) % [place] % (Auto) 12.6 H (2-11) % Eos % (Auto) 1.7 (0-4) % Baso % (Auto) 0.6 (0-2) % Lymph # (Auto) 2.7 (1.2-4.9) X10*3/uL [place] # (Auto) 0.9 (0.1-1.2) X10*3/uL Eos # (Auto) 0.1 (0.0-0.4) X10*3/uL Baso # (Auto) 0.0 (0.0-0.2) X10*3/uL Abs Immat Gran (auto) 0.01 (0.00-0.03) X10*3/uL Absolute Neuts (auto) 3.2 (2.0-8.3) x10*3/uL Absolute Nucleated RBC 0.000 (0.0-0.012) X10*3/uL Nucleated RBC % (auto) 0.0 (0.0-0.2) /100WBC Sodium 134 L (135-145) mmol/L Potassium 4.1 (3.3-5.1) mmol/L Chloride 98 (96-108) mmol/L Carbon Dioxide 25 (22-29) mmol/L Anion Gap 15 (12-20) BUN 11 (9-16) mg/dL Creatinine 0.64 (0.5-1.4) mg/dL Estim Creat Clear Calc 52.2 Estimated GFR > 60 Random Glucose 111 (60-115) mg/dL Calcium 10.0 D (8.4-10.2) mg/dL Magnesium 1.9 (1.6-2.6) mg/dL Total Bilirubin 0.9 (0.0-1.0) mg/dL AST 17 (5-31) U/L ALT 11 (0-31) U/L Alkaline Phosphatase 98 (39-117) U/L Total Protein 7.4 (6.5-8.0) g/dL Albumin 4.6 (3.5-5.0) g/dL Urine Color Urine Appearance Urine pH (5.0-9.0) Ur Specific [place] (1.005-1.025) Urine Protein (Neg-Trace) mg/dL Urine Glucose (UA) (Negative) mg/dL Urine Ketones (Negative) mg/dL Urine Blood (Negative) Urine Nitrite (Negative) Ur Leukocyte Esterase (Negative) Urine RBC (0-2) /HPF Urine WBC (0-5) /HPF Ur Squamous Epith Cells (0-2) /HPF Urine Bacteria (None Seen) Hyaline Casts (0-2) /LPF COVID-19 ([facility]) Negative (Negative) COVID-19 Clin Com See Note 07/25/22 Range/Units 20:18 WBC (4.8-10.8) X10*3/uL RBC (4.20-5.50) X10*6/uL Hgb (12.0-16.0) g/dl Hct (37.0-47.0) % MCV (80.0-98.0) fL MCH (27.0-33.0) pg MCHC (31.0-35.0) g/dl RDW (11.0-16.0) % Plt Count (160-400) X10*3/uL MPV (9.4-12.3) fL Immature Gran % (Auto) (0.0-0.4) % Neut % (Auto) (45-73) % Lymph % (Auto) (20-40) % [place] % (Auto) (2-11) % Eos % (Auto) (0-4) % Baso % (Auto) (0-2) % Lymph # (Auto) (1.2-4.9) X10*3/uL [place] # (Auto) (0.1-1.2) X10*3/uL Eos # (Auto) (0.0-0.4) X10*3/uL Baso # (Auto) (0.0-0.2) X10*3/uL Abs Immat Gran (auto) (0.00-0.03) X10*3/uL Absolute Neuts (auto) (2.0-8.3) x10*3/uL Absolute Nucleated RBC (0.0-0.012) X10*3/uL Nucleated RBC % (auto) (0.0-0.2) /100WBC Sodium (135-145) mmol/L Potassium (3.3-5.1) mmol/L Chloride (96-108) mmol/L Carbon Dioxide (22-29) mmol/L Anion Gap (12-20) BUN (9-16) mg/dL Creatinine (0.5-1.4) mg/dL Estim Creat Clear Calc Estimated GFR Random Glucose (60-115) mg/dL Calcium (8.4-10.2) mg/dL Magnesium (1.6-2.6) mg/dL Total Bilirubin (0.0-1.0) mg/dL AST (5-31) U/L ALT (0-31) U/L Alkaline Phosphatase (39-117) U/L Total Protein (6.5-8.0) g/dL Albumin (3.5-5.0) g/dL Urine Color Yellow Urine Appearance Clear Urine pH 6.5 (5.0-9.0) Ur Specific [place] 1.020 (1.005-1.025) Urine Protein Negative (Neg-Trace) mg/dL Urine Glucose (UA) Negative (Negative) mg/dL Urine Ketones 15 (Negative) mg/dL Urine Blood Trace (Negative) Urine Nitrite Negative (Negative) Ur Leukocyte Esterase Moderate (2+) H (Negative) Urine RBC 3-5 H (0-2) /HPF Urine WBC 11-20 (0-5) /HPF Ur Squamous Epith Cells 0-2 (0-2) /HPF Urine Bacteria 1+ (None Seen) Hyaline Casts 0-2 (0-2) /LPF COVID-19 ([facility]) (Negative) COVID-19 Clin Com <ADELE Haro - Last Filed: 07/25/22 19:58> Lab Results 07/25/22 07/25/22 07/25/22 Range/Units 20:18 20:18 20:18 WBC 6.9 (4.8-10.8) X10*3/uL RBC 4.01 L (4.20-5.50) X10*6/uL Hgb 13.3 (12.0-16.0) g/dl Hct 39.1 (37.0-47.0) % MCV 97.5 (80.0-98.0) fL MCH 33.2 H (27.0-33.0) pg MCHC 34.0 (31.0-35.0) g/dl RDW 12.1 (11.0-16.0) % Plt Count 301 (160-400) X10*3/uL MPV 9.2 L (9.4-12.3) fL Immature Gran % (Auto) 0.1 (0.0-0.4) % Neut % (Auto) 46.5 (45-73) % Lymph % (Auto) 38.5 (20-40) % [place] % (Auto) 12.6 H (2-11) % Eos % (Auto) 1.7 (0-4) % Baso % (Auto) 0.6 (0-2) % Lymph # (Auto) 2.7 (1.2-4.9) X10*3/uL [place] # (Auto) 0.9 (0.1-1.2) X10*3/uL Eos # (Auto) 0.1 (0.0-0.4) X10*3/uL Baso # (Auto) 0.0 (0.0-0.2) X10*3/uL Abs Immat Gran (auto) 0.01 (0.00-0.03) X10*3/uL Absolute Neuts (auto) 3.2 (2.0-8.3) x10*3/uL Absolute Nucleated RBC 0.000 (0.0-0.012) X10*3/uL Nucleated RBC % (auto) 0.0 (0.0-0.2) /100WBC Sodium 134 L (135-145) mmol/L Potassium 4.1 (3.3-5.1) mmol/L Chloride 98 (96-108) mmol/L Carbon Dioxide 25 (22-29) mmol/L Anion Gap 15 (12-20) BUN 11 (9-16) mg/dL Creatinine 0.64 (0.5-1.4) mg/dL Estim Creat Clear Calc 52.2 Estimated GFR > 60 Random Glucose 111 (60-115) mg/dL Calcium 10.0 D (8.4-10.2) mg/dL Magnesium 1.9 (1.6-2.6) mg/dL Total Bilirubin 0.9 (0.0-1.0) mg/dL AST 17 (5-31) U/L ALT 11 (0-31) U/L Alkaline Phosphatase 98 (39-117) U/L Total Protein 7.4 (6.5-8.0) g/dL Albumin 4.6 (3.5-5.0) g/dL Urine Color Urine Appearance Urine pH (5.0-9.0) Ur Specific [place] (1.005-1.025) Urine Protein (Neg-Trace) mg/dL Urine Glucose (UA) (Negative) mg/dL Urine Ketones (Negative) mg/dL Urine Blood (Negative) Urine Nitrite (Negative) Ur Leukocyte Esterase (Negative) Urine RBC (0-2) /HPF Urine WBC (0-5) /HPF Ur Squamous Epith Cells (0-2) /HPF Urine Bacteria (None Seen) Hyaline Casts (0-2) /LPF COVID-19 ([facility]) Negative (Negative) COVID-19 Clin Com See Note 07/25/22 Range/Units 20:18 WBC (4.8-10.8) X10*3/uL RBC (4.20-5.50) X10*6/uL Hgb (12.0-16.0) g/dl Hct (37.0-47.0) % MCV (80.0-98.0) fL MCH (27.0-33.0) pg MCHC (31.0-35.0) g/dl RDW (11.0-16.0) % Plt Count (160-400) X10*3/uL MPV (9.4-12.3) fL Immature Gran % (Auto) (0.0-0.4) % Neut % (Auto) (45-73) % Lymph % (Auto) (20-40) % [place] % (Auto) (2-11) % Eos % (Auto) (0-4) % Baso % (Auto) (0-2) % Lymph # (Auto) (1.2-4.9) X10*3/uL [place] # (Auto) (0.1-1.2) X10*3/uL Eos # (Auto) (0.0-0.4) X10*3/uL Baso # (Auto) (0.0-0.2) X10*3/uL Abs Immat Gran (auto) (0.00-0.03) X10*3/uL Absolute Neuts (auto) (2.0-8.3) x10*3/uL Absolute Nucleated RBC (0.0-0.012) X10*3/uL Nucleated RBC % (auto) (0.0-0.2) /100WBC Sodium (135-145) mmol/L Potassium (3.3-5.1) mmol/L Chloride (96-108) mmol/L Carbon Dioxide (22-29) mmol/L Anion Gap (12-20) BUN (9-16) mg/dL Creatinine (0.5-1.4) mg/dL Estim Creat Clear Calc Estimated GFR Random Glucose (60-115) mg/dL Calcium (8.4-10.2) mg/dL Magnesium (1.6-2.6) mg/dL Total Bilirubin (0.0-1.0) mg/dL AST (5-31) U/L ALT (0-31) U/L Alkaline Phosphatase (39-117) U/L Total Protein (6.5-8.0) g/dL Albumin (3.5-5.0) g/dL Urine Color Yellow Urine Appearance Clear Urine pH 6.5 (5.0-9.0) Ur Specific [place] 1.020 (1.005-1.025) Urine Protein Negative (Neg-Trace) mg/dL Urine Glucose (UA) Negative (Negative) mg/dL Urine Ketones 15 (Negative) mg/dL Urine Blood Trace (Negative) Urine Nitrite Negative (Negative) Ur Leukocyte Esterase Moderate (2+) H (Negative) Urine RBC 3-5 H (0-2) /HPF Urine WBC 11-20 (0-5) /HPF Ur Squamous Epith Cells 0-2 (0-2) /HPF Urine Bacteria 1+ (None Seen) Hyaline Casts 0-2 (0-2) /LPF COVID-19 ([facility]) (Negative) COVID-19 Clin Com <Anish Cadena - Last Filed: 07/25/22 22:42> Lab Results 07/25/22 07/25/22 07/25/22 Range/Units 20:18 20:18 20:18 WBC 6.9 (4.8-10.8) X10*3/uL RBC 4.01 L (4.20-5.50) X10*6/uL Hgb 13.3 (12.0-16.0) g/dl Hct 39.1 (37.0-47.0) % MCV 97.5 (80.0-98.0) fL MCH 33.2 H (27.0-33.0) pg MCHC 34.0 (31.0-35.0) g/dl RDW 12.1 (11.0-16.0) % Plt Count 301 (160-400) X10*3/uL MPV 9.2 L (9.4-12.3) fL Immature Gran % (Auto) 0.1 (0.0-0.4) % Neut % (Auto) 46.5 (45-73) % Lymph % (Auto) 38.5 (20-40) % [place] % (Auto) 12.6 H (2-11) % Eos % (Auto) 1.7 (0-4) % Baso % (Auto) 0.6 (0-2) % Lymph # (Auto) 2.7 (1.2-4.9) X10*3/uL [place] # (Auto) 0.9 (0.1-1.2) X10*3/uL Eos # (Auto) 0.1 (0.0-0.4) X10*3/uL Baso # (Auto) 0.0 (0.0-0.2) X10*3/uL Abs Immat Gran (auto) 0.01 (0.00-0.03) X10*3/uL Absolute Neuts (auto) 3.2 (2.0-8.3) x10*3/uL Absolute Nucleated RBC 0.000 (0.0-0.012) X10*3/uL Nucleated RBC % (auto) 0.0 (0.0-0.2) /100WBC Sodium 134 L (135-145) mmol/L Potassium 4.1 (3.3-5.1) mmol/L Chloride 98 (96-108) mmol/L Carbon Dioxide 25 (22-29) mmol/L Anion Gap 15 (12-20) BUN 11 (9-16) mg/dL Creatinine 0.64 (0.5-1.4) mg/dL Estim Creat Clear Calc 52.2 Estimated GFR > 60 Random Glucose 111 (60-115) mg/dL Calcium 10.0 D (8.4-10.2) mg/dL Magnesium 1.9 (1.6-2.6) mg/dL Total Bilirubin 0.9 (0.0-1.0) mg/dL AST 17 (5-31) U/L ALT 11 (0-31) U/L Alkaline Phosphatase 98 (39-117) U/L Total Protein 7.4 (6.5-8.0) g/dL Albumin 4.6 (3.5-5.0) g/dL Urine Color Urine Appearance Urine pH (5.0-9.0) Ur Specific [place] (1.005-1.025) Urine Protein (Neg-Trace) mg/dL Urine Glucose (UA) (Negative) mg/dL Urine Ketones (Negative) mg/dL Urine Blood (Negative) Urine Nitrite (Negative) Ur Leukocyte Esterase (Negative) Urine RBC (0-2) /HPF Urine WBC (0-5) /HPF Ur Squamous Epith Cells (0-2) /HPF Urine Bacteria (None Seen) Hyaline Casts (0-2) /LPF COVID-19 ([facility]) Negative (Negative) COVID-19 Clin Com See Note 07/25/22 Range/Units 20:18 WBC (4.8-10.8) X10*3/uL RBC (4.20-5.50) X10*6/uL Hgb (12.0-16.0) g/dl Hct (37.0-47.0) % MCV (80.0-98.0) fL MCH (27.0-33.0) pg MCHC (31.0-35.0) g/dl RDW (11.0-16.0) % Plt Count (160-400) X10*3/uL MPV (9.4-12.3) fL Immature Gran % (Auto) (0.0-0.4) % Neut % (Auto) (45-73) % Lymph % (Auto) (20-40) % [place] % (Auto) (2-11) % Eos % (Auto) (0-4) % Baso % (Auto) (0-2) % Lymph # (Auto) (1.2-4.9) X10*3/uL [place] # (Auto) (0.1-1.2) X10*3/uL Eos # (Auto) (0.0-0.4) X10*3/uL Baso # (Auto) (0.0-0.2) X10*3/uL Abs Immat Gran (auto) (0.00-0.03) X10*3/uL Absolute Neuts (auto) (2.0-8.3) x10*3/uL Absolute Nucleated RBC (0.0-0.012) X10*3/uL Nucleated RBC % (auto) (0.0-0.2) /100WBC Sodium (135-145) mmol/L Potassium (3.3-5.1) mmol/L Chloride (96-108) mmol/L Carbon Dioxide (22-29) mmol/L Anion Gap (12-20) BUN (9-16) mg/dL Creatinine (0.5-1.4) mg/dL Estim Creat Clear Calc Estimated GFR Random Glucose (60-115) mg/dL Calcium (8.4-10.2) mg/dL Magnesium (1.6-2.6) mg/dL Total Bilirubin (0.0-1.0) mg/dL AST (5-31) U/L ALT (0-31) U/L Alkaline Phosphatase (39-117) U/L Total Protein (6.5-8.0) g/dL Albumin (3.5-5.0) g/dL Urine Color Yellow Urine Appearance Clear Urine pH 6.5 (5.0-9.0) Ur Specific [place] 1.020 (1.005-1.025) Urine Protein Negative (Neg-Trace) mg/dL Urine Glucose (UA) Negative (Negative) mg/dL Urine Ketones 15 (Negative) mg/dL Urine Blood Trace (Negative) Urine Nitrite Negative (Negative) Ur Leukocyte Esterase Moderate (2+) H (Negative) Urine RBC 3-5 H (0-2) /HPF Urine WBC 11-20 (0-5) /HPF Ur Squamous Epith Cells 0-2 (0-2) /HPF Urine Bacteria 1+ (None Seen) Hyaline Casts 0-2 (0-2) /LPF COVID-19 ([facility]) (Negative) COVID-19 Clin Com <ADELE Smart - Last Filed: 08/01/22 15:37> Discharge Plan Discharge Clinical Impression: Back pain <ADELE Haro Last Filed: 07/25/22 19:58> Patient Disposition: Home, Self-Care <ADELE Haro - Last Filed: 07/25/22 19:58> Instructions: Back Pain (ED) <ADELE Haro - Last Filed: 07/25/22 19:58> Additional Instructions: Your CT scan did show an age-indeterminate L2 compression fracture that is new within the last 3 years. You also had a subacute pelvic fracture which could have happened with your fall 1 month ago Otherwise no significant findings were found to explain your worsening pain today Take dexamethasone twice daily for the next 2 days You may continue to use Tylenol for your pain Use oxycodone 2.5 mg for severe or breakthrough pain. You may take 2 pills at a time if necessary <ADELE Haro Last Filed: 07/25/22 19:58> Prescriptions: New dexamethasone 4 mg tablet 4 mg PO BID Qty: 4 0RF oxycodone 5 mg tablet 2.5 mg PO TID PRN (Reason: severe pain (scale score 7-10)) Qty: 20 0RF Rx Instructions: Partial Fill upon patient request. levofloxacin 250 mg tablet 250 mg PO DAILY 5 Days Qty: 5 0RF No Action atorvastatin 10 mg tablet 10 mg PO DAILY Qty: 90 3RF levothyroxine 50 mcg tablet 50 mcg PO DAILY Qty: 90 3RF metoprolol succinate 50 mg tablet extended release 24 hr PO Q OTHER DAY PRN pantoprazole 40 mg tablet,delayed release (DR/EC) 40 mg PO DAILY oxycodone-acetaminophen 5-325 mg tablet PO tramadol 50 mg tablet 50 mg PO Q6H PRN amlodipine 5 mg tablet 5 mg PO DAILY metoprolol succinate 25 mg tablet extended release 24 hr 25 mg PO DAILY <ADELE Haro - Last Filed: 07/25/22 19:58> Interventions: ED Discharge Assessment Last Done: 07/25/22 22:56 <ADELE Haro - Last Filed: 07/25/22 19:58> Discharge Date/Time: 07/25/22 22:57 <ADELE Haro - Last Filed: 07/25/22 19:58>
--- NOTE | 2022-07-25 20:20 | MHC.EDTECH ---
pt blood drawn ,covid swab collected and urine sample collected and sent to lab .
[2022-07-25 20:22] LABS: MANUAL DIFF FLAG NO
[2022-07-25 20:24] LABS: Basophils Percent Auto 0.6 % (0-2); Eosinophils Absolute Auto 0.1 X10*3/uL (0.0-0.4); Eosinophils Percent Auto 1.7 % (0-4); Hematocrit 39.1 % (37.0-47.0); Hemoglobin 13.3 g/dl (12.0-16.0); Imm Gran Abs Auto 0.01 X10*3/uL (0.00-0.03); Imm Gran Pct Auto 0.1 % (0.0-0.4); Lymphocytes Absolute Auto 2.7 X10*3/uL (1.2-4.9); Lymphocytes Percent Auto 38.5 % (20-40); Mean Corpuscular Hemoglobin 33.2 pg (27.0-33.0); Mean Corpuscular Volume 97.5 fL (80.0-98.0); Mean Platelet Volume 9.2 fL (9.4-12.3); Monocytes Absolute Auto 0.9 X10*3/uL (0.1-1.2); Monocytes Percent Auto 12.6 % (2-11); Neutrophils Absolute Auto 3.2 x10*3/uL (2.0-8.3); Neutrophils Percent Auto 46.5 % (45-73); Platelet Count 301 X10*3/uL (160-400); Red Blood Count 4.01 X10*6/uL (4.20-5.50); Red Cell Distribution Width 12.1 % (11.0-16.0); White Blood Count 6.9 X10*3/uL (4.8-10.8)
[2022-07-25 20:38] LABS: Alanine Aminotransferase 11 U/L (0-31); Albumin Level 4.6 g/dL (3.5-5.0); Alkaline Phosphatase 98 U/L (39-117); Anion Gap 15 (12-20); Appearance Urine Clear; Aspartate Amino Transferase 17 U/L (5-31); Bilirubin Total 0.9 mg/dL (0.0-1.0); Blood Urea Nitrogen 11 mg/dL (9-16); Carbon Dioxide 25 mmol/L (22-29); Chloride 98 mmol/L (96-108); Color Urine Yellow; Creatinine Clr Calc Pharmacy 52.2; Estimated Glomerular Filt Rate > 60; Glucose Random 111 mg/dL (60-115); Glucose Urine UA Negative (Negative); Leukocyte Esterase Urine Moderate (2+) (Negative); Magnesium 1.9 mg/dL (1.6-2.6); Nitrite Urine Negative (Negative); PH 6.5 (5.0-9.0); Potassium 4.1 mmol/L (3.3-5.1); Sodium 134 mmol/L (135-145); Total Protein 7.4 g/dL (6.5-8.0); UMIC TRIGGER UACC YES; Urine Blood Trace (Negative); Urine Ketones 15 mg/dL (Negative); Urine Protein Negative (Neg-Trace)
[2022-07-25 20:39] LABS: COVID-19 Test Negative (Negative); IDNOW Serial# 08D9AD1C
[2022-07-25 20:47] LABS: Bacteria Urine 1+ (None Seen); Hyaline Casts Urine 0-2 /LPF (0-2); Squamous Epithelial Cell Urine 0-2 /HPF (0-2); UACC Culture Trigger YES
== END 2022-07-25 22:57 | disposition home or self-care (01) ==
PROVIDERS: Physician Assistant; Emergency Provider Student in an Organized Health Care Education/Training Program; PCP Registered Nurse
DX: M54.50 Low back pain, unspecified (principal); Z20.822 Contact with and (suspected) exposure to COVID-19; I10 Essential (primary) hypertension; E78.5 Hyperlipidemia, unspecified; Z79.02 Long term (current) use of antithrombotics/antiplatelets; Z79.899 Other long term (current) drug therapy
CPT/HCPCS: 74176; 80053; 81001; 83735; 85025; 87086; 87088; 87186; 87635; 99282; 99284

== ENCOUNTER 2023-12-11 09:44 | Outpatient (REF) | payer SELFPAY ==
--- NOTE | 2023-12-11 10:30 | MHC.AU.HA3 ---
Hearing Instrument Follow-Up- Binaural Date of Visit: 12/11/23 Right Ear: Make, Model, Color, Serial Number: [id number] Seal Mixing Operator Repair Warranty: 03/19/2024 Seal Mixing Operator Loss and Damage Warranty: 03/19/2024 [facility] Service Plan: 03/19/24 Battery Size: Rechargeable Roastmaster/Slim Tube: Earmold/Dome/CShell/SlimTip: Type of Wax Guard: HearClear Dispensed By: [facility] Date of Fittin02/24/2021 Left Ear: Make, Model, Color, Serial Number: [id number] Seal Mixing Operator Repair Warranty: 03/19/2024 Seal Mixing Operator Loss and Damage Warranty: 03/19/2024 [facility] Service Plan: 03/19/24 Battery Size: Rechargeable Roastmaster/Slim Tube: Earmold/Dome/CShell/SlimTip: Type of Wax Guard: HearClear Dispensed By: [facility] Date of Fittin02/24/2021 Follow-Up Summary: Seen for hearing aid maintenance. Lupe reports she only wears the right aid. Has always had problems with the left falling out. Previous notes from 01/12/22 indicate this was an insertion issue that was retrained. Reports right says battery to her sometimes. Cleaned and checked aids, found both with clogged wax guards. Replaced wax guards and chad covers. Listening check positive. Left aid fits well. Practiced insertion with success. Sending both aids to [facility] [place] for battery replacement as warranty end is approaching. Recommendations: Recommendations: Patient will be contacted when materials have arrived. Appt. to pick pulling machine operator and review insertion again. Diagnosis Code(s): Primary Diagnosis: H90.3 Bilateral Sensorineural Hearing Loss Signature: Provider: Dinh Mirza, CCC-A
== END 2023-12-11 09:45 | disposition home or self-care (01) ==
LOC: HO.HAP 09:44
PROVIDERS: Visit Provider Registered Nurse
DX: Z13.89 Encounter for screening for other disorder (principal)

== ENCOUNTER 2023-12-26 15:17 | Outpatient (REF) | payer SELFPAY ==
--- NOTE | 2023-12-26 15:45 | MHC.AU.HA3 ---
Hearing Instrument Follow-Up- Binaural Date of Visit: 12/26/23 Right Ear: Tate, Model, Color, Serial Number: [id number] Corporate Auditor Repair Warranty: 03/19/2024 Corporate Auditor Loss and Damage Warranty: 03/19/2024 [facility] Service Plan: 03/19/24 Battery Size: Rechargeable Vice President Lending/Slim Tube: Earmold/Dome/CShell/SlimTip: Type of Wax Guard: HearClear Dispensed By: [facility] Date of Fittin02/24/2021 Left Ear: Tate, Model, Color, Serial Number: [id number] Corporate Auditor Repair Warranty: 03/19/2024 Corporate Auditor Loss and Damage Warranty: 03/19/2024 [facility] Service Plan: 03/19/24 Battery Size: Rechargeable Vice President Lending/Slim Tube: Earmold/Dome/CShell/SlimTip: Type of Wax Guard: HearClear Dispensed By: [facility] Date of Fittin02/24/2021 Follow-Up Summary: Dispensed repaired hearing aids. Practiced insertion left, doing well. Recommendations: Recommendations: Hearing instrument follow-up or maintenance as needed. 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
== END 2023-12-26 15:18 | disposition home or self-care (01) ==
LOC: HO.HAP 15:17
PROVIDERS: Visit Provider Registered Nurse
DX: Z13.89 Encounter for screening for other disorder (principal)

== ENCOUNTER 2024-11-27 15:32 | Emergency (ER) | payer MEDICARE, SELFPAY ==
--- NOTE | ~2024-11-27 | CT_ITS ---
CLINICAL HISTORY: further fracture evaluation, cannot move elbow CT of the right elbow without contrast Comparison: CR/SR - XR ELBOW 3 VIEWS RIGHT - 11/27/24 15:57 EDT Findings: Examination is degraded by positioning factors, metallic artifact, as well as motion artifact. Visualized soft tissues are unremarkable. Hardware within the distal humerus and proximal ulna. Chronic appearing fracture deformity within the distal humerus is present as before. There is linear lucency traversing the medial aspect of the distal humerus, as seen by plain film. IMPRESSION: Limited examination demonstrating no definite change in the distal humeral fracture seen by plain film. Repeat examination when patient is able to appropriately position and maintain a stationary position is recommended. This document has been electronically signed by: Jared Coley MD on 11/27/2024 18:50:25
--- NOTE | ~2024-11-27 | XR_ITS ---
EXAMINATION: XR ELBOW, RIGHT CLINICAL INFORMATION: pain, injury COMPARISON: 07/17/2020. TECHNIQUE: AP, lateral, and oblique views of the right elbow. FINDINGS: Study is limited due to obliquity and patient pain/inability to tolerate adequate positioning. Intramedullary yoav noted within the humeral diaphysis with transverse fixation screw. Plate and screw fixation of the ulnar/olecranon again noted, without periprosthetic lucency or fracture. Hardware is intact and well seated. Alignment of the elbow joint is anatomic. There is a healed ulnar fracture and probable healed supracondylar fracture as well. No definite acute fracture or dislocation is evident allowing for study limitations. Cannot well assess for elbow joint effusion although no gross effusion is evident. 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 Soft tissue swelling is present overlying the medial epicondyle. XR/XR elbow RT min 3V IMPRESSION: 1. Limited radiographs as described. 2. No definite acute fracture, dislocation, or periprosthetic abnormality. 3. Soft tissue swelling present overlying the medial epicondyle. Electronically signed by: Fan Gonzalez MD 11/27/2024 04:33 PM EDT
--- NOTE | 2024-11-27 15:37 | ED_ITS ---
HPI - General Adult General Chief complaint: Fall Stated complaint: R elbow pain d/t fall,?break. Time Seen by Provider: 11/27/24 15:37 Source: patient and EMS Mode of arrival: EMS Limitations: no limitations History of Present Illness ED Provider: Layne Echeverria PA-C HPI narrative: Patient is an 89 year old female with a past medical history of hypertension, hypothyroidism, hyperlipidemia, vertebral compression fracture and 2 previous right elbow fracture surgically repaired 10/1999 and 09/16/20, presenting with right elbow pain after a trip and fall off of 1 step about 2 hours ago. She describes the pain as a 10/10 when she moves her arm. She did not have any dizziness prior to the fall and denies loss of consciousness or head strike. She denies fever, chills, vision changes, chest pain, and shortness of breath. Onset (ago): hour(s) (2) Location: upper extremity (right elbow) Severity: similar to prior episodes Severity scale (1-10): 10 Quality: constant Relieving factors: immobilization Exacerbating factors: movement Associated symptoms: denies other symptoms Treatments prior to arrival: none Related Data Home Medications ?Medication ?Instructions ?Recorded ?Confirmed amlodipine 5 mg tablet 5 mg PO DAILY 01/23/2001/22 metoprolol succinate 25 mg 25 mg PO DAILY 01/23/2006/12 tablet,extended release 24 hr metoprolol succinate 50 mg mg PO Q OTHER DAY PRN 01/2201/23/20 tablet,extended release 24 hr oxycodone-acetaminophen 5 mg-325 tab PO 01/23/2001/22 mg tablet pantoprazole 40 mg tablet,delayed 40 mg PO DAILY 01/2201/23/20 release tramadol 50 mg tablet 50 mg PO Q6H PRN 01/23/20 Previous Rx's ?Medication ?Instructions ?Recorded atorvastatin 10 mg tablet 10 mg PO DAILY #90 tabs 02/21 08/10 levothyroxine 50 mcg tablet 50 mcg PO DAILY #90 tabs 0 06/02/21 dexamethasone 4 mg tablet 4 mg PO BID #4 tabs 07/25/22 oxycodone 5 mg tablet 2.5 mg (1/2 x 5 mg) PO TID P RN 07/25/22 severe pain (scale score 7-10) #20 tabs levofloxacin 250 mg tablet 250 mg PO DAILY 5 days #5 t abs 08/01/22 oxycodone 5 mg tablet 2.5 mg (1/2 x 5 mg) PO Q8H P RN 11/27/24 breakthrough pain #2 tabs Allergies Allergy/AdvReac Type Severity Reaction Status Date / Time lisinopril (LISINOPRIL) Allergy Intermediate COUGH Verified 11/27/24 15:53 amlodipine Allergy Unknown swelling Verified 11/27/24 15:53 Review of Systems Constitutional: Constitutional: Reports no additional constitutional complaints, Denies chills, Denies fever(s) and Denies night sweats Eyes: Eyes: Reports no additional eye complaints, Denies blurry vision, Denies change in vision, Denies diplopia, Denies eye discharge, Denies loss of vision and Denies eye pain ENT: Denies dizziness Cardiovascular: Cardiovascular: Reports no additional cardiovascular complaints, Denies chest pain, Denies lightheadedness, Denies Loss of Consciousness and Denies dyspnea Respiratory: Respiratory: Reports no additional respiratory complaints and Denies dyspnea Gastrointestinal: Gastrointestinal: Reports no additional gastrointestinal complaints, Denies abdominal pain, Denies melena, Denies hematochezia, Denies change in bowel habits and Denies change in stool character Genitourinary: Genitourinary: Denies hematuria, Denies urinary frequency, Denies dysuria, Denies urinary incontinence, Denies urinary hesitancy and Denies urinary urgency Musculoskeletal: Musculoskeletal: Reports as per HPI, Denies numbness and Denies tingling Comments: right elbow pain Neurologic: Denies dizziness, Denies loss of vision, Denies numbness and Denies tingling Psychiatric: Psychiatric: Reports no additional psychiatric complaints Endocrine: Endocrine: Reports no additional endocrine complaints Hematologic/Lymphatic: Hematologic/Lymphatic: Reports no additional hematologic/lymphatic complaints Allergic/Immunologic: Allergic/Immunologic: Reports no additional allergic/immunologic complaints PMFSH Past Medical History Attestation statement: The following information was validated with the patient. Source: old records reviewed and nursing notes reviewed Medical History HLD (hyperlipidemia) GERD (gastroesophageal reflux disease) HTN (hypertension) Low back pain Social History Social History Patient Tobacco Use Status: Never used Tobacco Smoked in Last 30 Days: No Use of substances other than those prescribed or required for medical reasons: No Advance Directives: No Advance Directives Information Provided: No Do you have a plan to hurt others: No Plan Physical Exam ED Vital Signs: Vital Signs - 24 hr 11/27/24 15:51 11/27/24 18:46 Temperature 98.8 F 98.5 F Pulse Rate 97 103 H Respiratory Rate 18 18 Blood Pressure 140/71 H 135/73 Pulse Oximetry 94 96 Oxygen Delivery Method Room Air Room Air BMI result Body Mass Index 25.1 Const General: cooperative, no acute distress, alert and awake Nutritional Appearance: well nourished Orientation/consciousness: patient oriented x3 HENMT Head: Yes normal to inspection and Yes atraumatic Ears: hearing grossly normal bilaterally and external ears normal General nose exam: Normal external nose present, no nasal discharge noted and no epistaxis Face and sinus: Yes normal facial exam, No abrasion and No laceration Mouth: Normal oral and palatal mucosa present, no drooling and no muffled voice Eyes General: appearance normal, both eyes and all related structures Periorbital: periorbital findings normal Eyelids: Yes eyelids normal Conjunctivae: conjunctivae normal Pupils: Equal, round and reactive pupils present EOM: EOMs intact bilaterally Neck Neck: Yes normal visual inspection, Yes full ROM and Yes no lymphadenopathy Resp Effort & Inspection: normal respiratory effort and able to speak in complete sentences Neuro General: patient oriented x3, moves all extremities and CN's II-XI intact bilaterally Cranial nerves: Yes Equal, round and reactive pupils present Cognition (Neuro): normal cognition Extrem Other: limited ROM of the right elbow secondary to pain General: Yes capillary refill normal Psych Appearance: grossly normal Mental Status: mental status grossly normal Affect: normal affect Attitude: cooperative Thought process: Normal thought process present Thought content: Normal thought content present Insight: Good insight present (Psych) Procedures Orthopedic Splinting/Casting Injury #1: Side: right Upper Extremity Injury Location: elbow Upper Extremity Immobilizer: sling/shoulder immobilizer Medical Decision Making Medical Decision Making MDM Narrative: Patient is an 89 year old assigned female at with a history of hypertension, hypothyroidism, hyperlipidemia, vertebral compression fracture and 2 previous right elbow fractures surgically repaired 10/1999 and 09/16/20, presenting with right elbow pain after a trip and fall off of 1 step. Patient's physical exam was as noted in the physical exam portion of this note. Patient's right elbow x-ray and CT were both read as negative for acute fracture however - both had suboptimal images and occult fracture was not ruled out. I called and spoke with [facility] who performed her last 2 surgeries and they recommended placing the patient in a sling and having her follow up on an outpatient basis. I explained my physical exam findings as well as all test results to the patient and the patient's granddaughter. I answered all questions asked by the patient and the patient's granddaughter. Patient's right upper extremity was placed in a sling, without incident. Patient's PMS was intact prior to and after sling placement. I stressed the importance of the patient taking her medication as directed (either prescribed or as the over the counter packaging recommends). I stressed the importance of the patient following up with her primary care provider and the orthopedic team. I stressed the importance of the patient returning to the emergency department immediately if her symptoms were to worsen or if she were to develop any dizziness, shortness of breath, difficulty breathing, chest pain, blurry vision, loss of vision, nausea, vomiting, abdominal pain, fever, chills, back pain, or any other complaints. Patient verbalized agreement and understanding with this treatment plan and discharge. Differential Diagnosis Differential Diagnoses: The differential diagnosis associated with the presentation includes Right elbow fracture Right elbow sprain Right elbow strain Right elbow pain Admission/Observation Consideration of admission/observation: Escalation of care including admission/observation considered Patient would have been admitted to the hospital had her work up had any f indings where hospital admission was appropriate and her clinical presentation warranted hospital admission. Consult Healthcare Provider Management of the patient was discussed with: Biller (spoke with [facility] as noted in the MDM Rationale portion of this note. ) Independent Interpretation I performed an independent interpretation of an: Plain X-Ray and CT Scan Interpretation: My interpretation is in agreement with the radiologist's impression of these imaging studies. Report Number: [id number]: Total DLP = 122.00 mGy-cm CLINICAL HISTORY: further fracture evaluation, cannot move elbow CT of the right elbow without contrast Comparison: CR/SR - XR ELBOW 3 VIEWS RIGHT - 11/27/24 15:57 EDT Findings: Examination is degraded by positioning factors, metallic artifact, as well as motion artifact. Visualized soft tissues are unremarkable. Hardware within the distal humerus and proximal ulna. Chronic appearing fracture deformity within the distal humerus is present as before. There is linear lucency traversing the medial aspect of the distal humerus, as seen by plain film. IMPRESSION: Limited examination demonstrating no definite change in the distal humeral fracture seen by plain film. Repeat examination when patient is able to appropriately position and maintain a stationary position is recommended. This document has been electronically signed by: Jared Coley MD on 11/27/2024 18:50:25 Dictated By: Jared Coley MD Signed By: Electronically signed by Jared Coley MD 11/27/24 1851 EXAMINATION: XR ELBOW, RIGHT CLINICAL INFORMATION: pain, injury COMPARISON: 07/17/2020. TECHNIQUE: AP, lateral, and oblique views of the right elbow. FINDINGS: Study is limited due to obliquity and patient pain/inability to tolerate adequate positioning. Intramedullary yoav noted within the humeral diaphysis with transverse fixation screw. Plate and screw fixation of the ulnar/olecranon again noted, without periprosthetic lucency or fracture. Hardware is intact and well seated. Alignment of the elbow joint is anatomic. There is a healed ulnar fracture and probable healed supracondylar fracture as well. No definite acute fracture or dislocation is evident allowing for study tai itations. Cannot well assess for elbow joint effusion although no gross effusion is evident. 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 Soft tissue swelling is present overlying the medial epicondyle. XR/XR elbow RT min 3V IMPRESSION: 1. Limited radiographs as described. 2. No definite acute fracture, dislocation, or periprosthetic abnormality. 3. Soft tissue swelling present overlying the medial epicondyle. Electronically signed by: Fan Gonzalez MD 11/27/2024 04:33 PM EDT Dictated By: Fan Gonzalez MD Signed By: Electronically signed by Fan Gonzalez MD 11/27/24 1863 Radiology Impression Discussion of test interpretation with radiology: I have reviewed the radiologist's reading. Independent Historian Clinical information obtained from an independent historian. History obtained from or confirmed by: EMS (EMS provided additional history and confirmed the history provided by the patient. ) Prescription Management I considered prescription management with: Pain Medication (patient prescribed pain medication) Critical Care Time Critical Care Time Critical Care Time: Yes Total Critical Care Time: 36 Attestation: I spent 36 minutes of Critical Care Time with this patient. This does not include time spent on separately reported billable procedures. Discharge Plan Discharge Clinical Impression: Elbow injury Qualifiers: Encounter type: initial encounter Laterality: right Qualified Code(s): S59.901A - Unspecified injury of right elbow, initial encounter Patient Disposition: Home, Self-Care Instructions: How to Use a Sling (ED) Additional Instructions: Your imaging today was inconclusive so I consulted with the orthopedic team that did your initial surgery who recommended placing you in a sling and having you follow up with them on an outpatient basis. Every 1 hour for 10 minutes remove the sling, stabilize the elbow, and rotate the right shoulder. IF you are prescribed medications and/or you are taking over the counter medications - it is very important you continue to do so as prescribed / directed unless told otherwise. Follow up with your primary care provider and the orthopedic team. Return to the emergency department immediately if your symptoms worsen or if you develop any numbness, tingling, dizziness, shortness of breath, difficulty breathing, chest pain, blurry vision, loss of vision, nausea, vomiting, abdominal pain, fever, chills, back pain, or any other complaints. Please see the information below about our Patient Portal. If you are not yet enrolled in the [facility] Patient Portal, you will receive an enrollment email invitation following your visit to any [facility] [place] [place] [place] care setting. You may also self-enroll in the Patient Portal by visiting our website: [email or web address] The following information is required to access the Patient Portal: - Your [facility] [place] [place] Medical Record Number - Your personal home email address (must match what is in your electronic medical record, Registration staff can assist with this) - Name - Date of Capabilities of the Patient Portal: - Message some providers - View upcoming appointments - Access your health summary, medical history, and visit history - View current conditions and allergies - View procedure and lab results - View your medications, including guidelines, side effects, and precautions - Complete pre-appointment questionnaires requested by your provider - Ready summary reports of your office visits and procedures To access the Patient Portal Mobile Janel, follow these directions: - Search Powerphotonic in the Janel Store or [employer] Store - Download the Janel - Search for [facility] - Enter your login/password Prescriptions: New oxycodone 5 mg tablet 2.5 mg PO Q8H PRN (Reason: breakthrough pain) Qty: 2 0RF Rx Instructions: Partial Fill upon patient request. No Action atorvastatin 10 mg tablet 10 mg PO DAILY Qty: 90 3RF levothyroxine 50 mcg tablet 50 mcg PO DAILY Qty: 90 3RF dexamethasone 4 mg tablet 4 mg PO BID Qty: 4 0RF oxycodone 5 mg tablet 2.5 mg PO TID PRN (Reason: severe pain (scale score 7-10)) Qty: 20 0RF Rx Instructions: Partial Fill upon patient request. levofloxacin 250 mg tablet 250 mg PO DAILY 5 Days Qty: 5 0RF metoprolol succinate 50 mg tablet extended release 24 hr PO Q OTHER DAY PRN pantoprazole 40 mg tablet,delayed release (DR/EC) 40 mg PO DAILY oxycodone-acetaminophen 5-325 mg tablet PO tramadol 50 mg tablet 50 mg PO Q6H PRN amlodipine 5 mg tablet 5 mg PO DAILY metoprolol succinate 25 mg tablet extended release 24 hr 25 mg PO DAILY Referrals: [facility] [Provider Group, Orthopedics] Nakul Hastings MD [Primary Care Provider, Internal Medicine] Print Language: Eritrean
--- OUTSIDE RECORDS SUMMARY | 2024-11-27 15:47 | XMS_ITS | Clinical Summary ---
Author Organization [facility] Address [address] [place] [phone] Phone Care Team Providers Care Recreational Resort Manager Name Role Phone Nakul Hastings MD Primary Care Provider [phone] Nakul Hastings MD Unavailable Allergies Active Allergy Reactions Criticality Noted Date Comments Lisinopril 08/08/2021 Cough, choking Medications multivitamins-mine rals-folic xnlt-ocbdzus-qofoj n (CENTRUM SILVER) 0.4-300-250 mg-mcg-mcg Tab Take 1 tablet by mouth daily. 0 Active acetaminophen (TYLENOL) 500 MG tablet Take 1,000 mg by mouth every 8 (eight) hours as needed for pain (specific location in comments) (back and shoulder). 0 Active glucosamine/methyl sulfonylmeth (GLUCOSAMINE MSM ORAL) Take 1 capsule by mouth daily. Active calcium citrate/vitamin D3 (CITRACAL + D ORAL) Take 1 tablet by mouth daily. Active amoxicillin (AMOXIL) 500 MG capsule Take 2 caps po 1 hour prior to dental procedure 8 capsule 1 3 Active atorvastatin (LIPITOR) 10 MG tabletIndications: Mixed hyperlipidemia take 1 tablet daily 90 tablet 3 4 Active levothyroxine (SYNTHROID, LEVOTHROID) 50 MCG tabletIndications: Hypothyroidism Take 1 tablet (50 mcg total) by mouth every morning. 90 tablet 3 5 Active amLODIPine (NORVASC) 10 MG tabletIndications: Essential hypertension TAKE 1 TABLET DAILY 90 tablet 3 5 Active metoprolol succinate (TOPROL-XL) 50 MG 24 hr tabletIndications: Essential hypertension TAKE 1 TABLET DAILY 90 tablet 3 5 Active pantoprazole (PROTONIX) 40 MG tabletIndications: Gastroesophageal reflux disease TAKE 1 TABLET DAILY 90 tablet 3 5 Active furosemide (LASIX) 20 MG tabletIndications: Edema of both legs Take 1 tablet (20 mg total) by mouth daily as needed (leg swelling). 30 tablet 2 5 Active Active Problems Problem Noted Date Diagnosed Date Cardiac arrhythmia 03/31/2024 Routine general medical exam ination at a [facility] care facility 03/31/2024 Assessment & Plan (03/31/2024 11:05 AM EST): The exam was remarkable for irregularly irregular dysrhythmia but rate controlled. She continues on metoprolol for hypertension. EKG being done to determine rhythm. If atrial fibrillation consider anticoagulation per Andre vas 2 and referral to [place] [facility]. Otherwise we can see the patient back in 6 months to follow-up on chronic medical conditions. She is fasting so we will obtain a cholesterol profile AST ALT and given the dysrhythmia but regular TSH previous will recheck TSH free T4 as the patient continues on Levoxyl 50. Will continue also the antihypertensives. Check electrolytes with the Lasix on board. Edema of both legs 10/31/2022 Assessment & Plan (10/01/2024 10:54 AM EDT): Advised to continue Lasix 20 mg as needed for edema exacerbation but when taking the Lasix make sure you are getting enough potassium in the form of banana for citrus fruits or tomato. Assessment & Plan (10/31/2022 4:49 PM EDT): Bilateral lower extremity edema in the setting of full-strength Norvasc and spider veins associated with venous stasis. Low-sodium diet reinforced, previous labs reviewed, no chronic renal failure, trial of 20 mg Lasix please take before noon time take 1 tablet if skin tension and leg swelling increases. No signs of CHF. Hypothyroidism 03/21/2022 Assessment & Plan (10/01/2024 10:54 AM EDT): No overt signs of hypothyroidism, continue Levoxyl and check TSH today. If good then we will just check it yearly. Assessment & Plan (06/28/2023 11:18 AM EST): No clinical signs of hypothyroidism or hyperthyroidism, check TSH free T4 and adjust levothyroxine only if severely deviated from norm. Assessment & Plan (03/21/2022 5:26 AM EST): Continue levothyroxine Microhematuria 03/21/2022 Assessment & Plan (03/21/2022 5:27 AM EST): Check u/a, will consider urology referral if persistent IFG (impaired fasting glucose) 03/21/2022 Assessment & Plan (10/01/2024 10:54 AM EDT): Obtain a hemoglobin A1c today and see if monitoring twice yearly would make sense. Assessment & Plan (03/21/2022 5:26 AM EST): Will be mindful of carbohydrate intake. Check a1c with next labs Tinnitus of both ears 03/21/2022 Assessment & Plan (03/21/2022 5:28 AM EST): Exam normal today, to discuss with audiology at upcoming appt Renal calculus, right Hyperlipidemia Assessment & Plan (10/01/2024 10:53 AM EDT): Will check a lipid profile today, continue atorvastatin, adjustment if needed, lipid profile with LDL goal being 100 mg/dL or less. Assessment & Plan (06/28/2023 11:17 AM EST): She will continue Lipitor and will check liver enzymes and cholesterol profile today. Make adjustment only if the LDL is well above 120 mg/dL. Assessment & Plan (03/21/2022 5:26 AM EST): Continue statin, tolerating well Gastroesophageal reflux disease Assessment & Plan (03/21/2022 5:27 AM EST): Continue PPI Essential hypertension Overview (09/22/2020): Last exercise stress test was in 2011. Assessment & Plan (10/01/2024 10:53 AM EDT): Hypertension well controlled with current listed antihypertensives. Denies side effects No change to dosing. Low Sodium diet reinforced. Continue to monitor condition. Assessment & Plan (06/28/2023 11:17 AM EST): Blood pressure well-controlled continue the antihypertensive as such and will check electrolytes kidney function today. She is using the Lasix only in rare occasions. Assessment & Plan (03/21/2022 5:26 AM EST): Stable on current medication regimen Osteoporosis Assessment & Plan (03/21/2022 5:27 AM EST): Declines further DXA monitoring. Very cautious with fall prevention. Will continue regular physical activity, adequate vitamin D and calcium intake Peripheral vascular disease Encounters Date Type Department Care Team Description 10/03/2024 Telephone [facility] Internal Medicine [address] [place] [address] Nakul Hastings MD Results 10/01/2024 10:55 AM EDT - 10/01/2024 11:59 PM EDT Hospital Encounter [facility] [address] [facility] [place] [address] Nakul Hastings MD Discharge Disposition: Home or Self Care 10/01/2024 10:30 AM EDT Office Visit [facility] Internal Medicine [address] [place] [address] Nakul Hastings MD Hypothyroidism, unspecified type (Primary Dx); Mixed hyperlipidemia; Essential hypertension; IFG (impaired fasting glucose); Edema of both legs 09/25/2024 Refill [facility] Internal Medicine [address] [facility] [place] [address] Nakul Hastings MD Medication Refill from Last 3 Months Immunizations Immunization Administration Dates Next Due COVID-19 (Pre-02/12) Pfizer Vaccine, mRNA, PF 08/04/2020,07/14/2020 Influenza High-Dose Quadriva lent Preservative Free IM 02/03/2022,02/16/2021,04/02/2020 Influenza High-Dose Trivalen t Preservative Free IM 02/06/2019,02/08/2018,01/31/2017,12/28,01/14/2015 Influenza Quadrivalent Adjuv anted Preservative Free IM 02/22/2023 Influenza Trivalent Adjuvant ed Preservative free IM 02/20/2024 Pneumococcal conjugate PCV13 02/02/2016 Pneumococcal polysaccharide PPSV23 12/14/2017 RSV Vaccine (monovalent, adjuvanted) 03/30/2023 Td (adult),2 Lf Tetanus Toxo id, PF, Adsorbed 03/23/2008 Tdap 09/16/2020 Zoster live 03/07/2016 Family History Relation Status Comments Brother Sister 1 Alive Sister 2 Alive Sister 3 Sister 4 Son 1 Alive Son 2 Alive Son 3 Alive Social History Tobacco Use Types Packs/Day Years Used Date Smoking Tobacco: Never Smokeless Tobacco: Never Tobacco Cessation:Counseling Given: Not Answered Alcohol Use Standard Drinks/Week Comments Yes 0 (1 standard drink = 0.6 oz pur e alcohol) rarely Child or Family Care Answer Date Record ed Do you have problems with on e of the following making it difficult for you to work, study, or receive health care? No 08/31/2020 Education Answer Date Recorded Are you interested in more education? Not on kaci e 09/02/2022 Are you concerned about learning? Not on file 09/02/2022 No 09/02/2022 No 09/02/2022 Food Answer Date Recorded Within the past 6 months we worried whether our food would run out before we got money to buy more. Never True 08/31/2020 Within the past 6 months the food we bought just didn't last and we didn't have enough money to get more. Never True Paying for Meds Answer Date Recorded Do you have trouble paying for medicines? No 08/31/2020 Paying Utility Bills Answer Date Record ed Do you have trouble paying your heating or elect ricity bill? No 08/31/2020 Transportation Answer Date Recorded Has the lack of transportati on kept you from medical appointments or from getting medications? No 08/31/2020 Unemployment Answer Date Recorded Are you currently unemployed or working on a part-time or temporary basis, and looking for work? No 08/31/2020 Digital Access Answer Date Recorded No 09/15/2022 No 09/15/2022 Reliable internet access at home? Not on file 09/15/2022 Device with a working camera? Not on file Intimate Partner Violence Answer Date R ecorded Denied Basic Needs Not on file 03/13/2023 In the past 12 months have y ou been in a relationship with a person who hurts, threatens, or tries to control you? No 03/13/2023 Worried food would run out Not on file 03/13 In the past 12 months have y ou been in a relationship with a person who hurts, threatens, or tries to control you? No 03/13/2023 Comments Unknown Sex and Gender Information Value Date Recorded Sex Assigned at Not on file Legal Sex Female 12:07 PM EDT Gender Identity Not on file Sexual Orientation Not on file Last Filed Vital Signs Vital Sign Reading Time Taken Comments Blood Pressure 138/50 10/01/2024 10:22 AM EDT Pulse 97 10/01/2024 10:22 AM EDT Temperature 36.2 C (97.1 F) 10/01/2024 10:22 AM EDT Respiratory Rate 18 10/01/2024 10:22 AM EDT Oxygen Saturation 96% 10/01/2024 10:22 AM EDT Inhaled Oxygen Concentration - - Weight 60.3 kg (133 lb) 10/01/2024 10:22 AM EDT Height 158.2 cm (5' 2.28 ) 10/01/2024 10:22 AM E DT Body Mass Index 24.11 10/01/2024 10:22 AM EDT Plan of Treatment Upcoming Encounters Date Type Department Care Team (Late st Contact Info) Description 04/14/2025 9:00 AM EST Office Visit [facility] Internal Medicine [address] [place] [address] Nakul Hastings MD [address] [place] [address] [phone] (work) [email or web address] Health Maintenance Due Date Last Done Comments ZOSTER VACCINES (2 of 3) 05/02/2016 03/07/2016 FOLLOW UP BONE DENSITY TESTING 04/30/2020 04/30/2018 DEPRESSION SCREENING 03/13/2024 03/13/2023 COVID-19 VACCINE ( season) 2024 02/20/2024, 02/22/2023, 05/09/2022, Additional history exists TSH LEVEL 10/01/2025 10/01/2024, 12/12/2023, 06/28/2023, Additional history exists Adult Td,Tdap Booster 09/16/2030 09/16/2020, 008 PNEUMOCOCCAL VACCINES (50+ years) Completed 12/14/2017, 02/02/2016 OSTEOPOROSIS SCREENING INITIAL (ONE-TIME) Completed 04/30/2018 RSV VACCINE Completed 03/30/2023 HEPATITIS A VACCINES Aged Out No long er eligible based on patient's age to complete this topic HIB VACCINES Aged Out No longer eligi ble based on patient's age to complete this topic MENINGOCOCCAL VACCINES (ACWY) Aged Out No longer eligible based on patient's age to complete this topic MENINGOCOCCAL VACCINES (B) Aged Out N o longer eligible based on patient's age to complete this topic Medical Devices Not on file Procedures Procedure Name Priority Date/Time Associated Diagnosis Comments BASIC METABOLIC PANEL Routine 10/01/2024 10:55 AM EDT Essential hypertension TSH WITH REFLEX Routine 10/01/2024 10:55 AM EDT Hypothyroidism, unspecified type ASPARTATE AMINOTRANSFERASE (AST) Routine 10/01/2024 10:55 AM EDT Mixed hyperlipidemia ALANINE AMINOTRANSFERASE (ALT) Routine 10/01/2024 10:55 AM EDT Mixed hyperlipidemia LIPID PANEL Routine 10/01/2024 10:55 AM EDT Mixed hyperlipidemia HEMOGLOBIN A1C Routine 10/01/2024 10:55 AM EDT IFG (impaired fasting glucose) OUTSIDE BONE DENSITY SCREENING Routine 04/30/2018 from Last 3 Months or Most Recently Relevant to Health Maintenance Results * TSH with reflex (10/01/2024 10:55 AM EDT) TSH 1.85 0.27 - 4.20 uIU/mL [facility] Blood 10/01/2024 10:5 5 AM EDT 10/01/2024 10:58 AM EDT us Nakul Hastings MD LAB BLOOD ORDERABLES Final Resul t Performing Organization Address City/[facility]/ZIP Co de Phone Number [address] [address] * Alanine aminotransferase (ALT) (10/01/2024 10:55 AM EDT) ALT 15 0 - 40 U/L [facility] Blood 10/01/2024 10:5 5 AM EDT 10/01/2024 10:58 AM EDT us Nakul Hastings MD LAB BLOOD ORDERABLES Final Resul t Performing Organization Address [facility] Co de Phone Number [address] [address] * Aspartate aminotransferase (AST) (10/01/2024 10:55 AM EDT) AST 26 0 - 37 U/L [facility] Blood 10/01/2024 10:5 5 AM EDT 10/01/2024 10:58 AM EDT us Nakul Hastings MD LAB BLOOD ORDERABLES Final Resul t Performing Organization Address [facility] Co de Phone Number [address] [address] * Hemoglobin A1c (10/01/2024 10:55 AM EDT) HEMOGLOBIN A1C 5.3 4.3 - 5.8 % [facility] Blood 10/01/2024 10:5 5 AM EDT 10/01/2024 10:58 AM EDT Nakul Hastings MD LAB BLOOD ORDERABLES Final Resul t Performing Organization Address City/[facility] Co de Phone Number [address] [address] * (ABNORMAL) Lipid panel (10/01/2024 10:55 AM EDT) HDL 70 mg/dL [facility] Comment: Interpretation <40 mg/dL: Low HDL cholesterol (major risk factor for CHD) Greater than or equal to 60 mg/dL: High HDL cholesterol ( negative risk factor for CHD) HDL - cholesterol is affected by a number of factors, e.g. smoking, excerise, hormones, sex and age. CHOLESTEROL 157 0 - 240 mg/dL [facility] TRIGLYCERIDES 85 30 - 160 mg/dL [facility] LDL 70 50 - 129 mg/dL [facility] Comment: LDL levels in terms of risk for coronary heart disease: <100 mg/dL: Optimal 100-129 mg/dL: Near or above optimal 130-159 mg/dL: Borderline high 160-189 mg/dL: High >190 mg/dL: Very High CARDIAC RISK RATIO 2.2(L) 3.3 - 4.4 C [facility] Blood 10/01/2024 10:5 5 AM EDT 10/01/2024 10:58 AM EDT Nakul Hastings MD LAB BLOOD ORDERABLES Final Resul t Performing Organization Address City/[facility]/ZIP Co de Phone Number [address] [address] * (ABNORMAL) Basic metabolic panel (10/01/2024 10:55 AM EDT) SODIUM 134 133 - 146 mmol/L [facility] CHLORIDE 96 96 - 108 mmol/L [facility] POTASSIUM 3.6 3.3 - 5.1 mmol/L [facility] CO2 27 21 - 35 mmol/L [facility] BUN 8 6 - 19 mg/dL [facility] CREATININE 0.50 0.5 - 1.5 mg/dL [facility] GLUCOSE 113(H) 70 - 99 mg/dL [facility] CALCIUM 9.9 8.4 - 10.3 mg/dL [facility] EGFR 90 >59 mL/min/1.7 3m2 [facility] Comment:Estimated glomerular filtration rate calculated using the CKD-EPI refit equation. ANION GAP 15 10 - 20 mmol/L [facility] Blood 10/01/2024 10:5 5 AM EDT 10/01/2024 10:58 AM EDT us Nakul Hastings MD LAB BLOOD ORDERABLES Final Resul t [facility] [address] [place] [address] * OUTSIDE BONE DENSITY SCREENING (04/30/2018) BONE DENSITY SCREENING - EXTERNAL osteoporosis Historical Provider HEALTH MAINTENANCE Final Result from Last 3 Months or Most Recently Relevant to Health Maintenance Insurance MEDICARE PART A & B [employer] MEDEX SUPPLEMENT MEDICARE PART A & B [facility] MEDEX SUPPLEMENT MEDICARE PART A & B [employer] MEDEX SUPPLEMENT MEDICARE PART A & B [employer] MEDEX SUPPLEMENT MEDICARE PART A & B [employer] MEDEX SUPPLEMENT MEDICARE PART A & B [employer] MEDEX SUPPLEMENT MEDICARE PART A & B [employer] MEDEX SUPPLEMENT MEDICARE PART A & B [employer] MEDEX SUPPLEMENT MEDICARE PART A & B [employer] MEDEX SUPPLEMENT Advance Directives For more information, please contact: [phone] (9AM - 5PM [facility], Sunday-Sunday) Documents on File Type Date Recorded Patient Electronic Components Assembler Expl anation Healthcare Proxy 03/28/2022 Health Care Proxy [facility]OL[facility] 03/20/2022 MOLST - 2 Care Teams Recreational Resort Manager Relationship Specialty Start Date End Date Nakul Hastings MD [address] [place] [address] [email or web address] PCP - General Internal Medicine 09/15/22 Nakul Hastings MD [address] [place] [address] (work) [email or web address] Insurance Assigned Provider 07/28/23 Additional Source Comments The information contained in this document represents components of the legal health record. It is not the complete legal health record.[facility]
[2024-11-27 15:51] VITALS: BP 140/71; BP 142/74; PULSE 103; PULSE 97; RESP 18; TEMP 37.1; O2SAT 94; O2SAT 95; BMI 25.1
[2024-11-27 18:46] VITALS: BP 135/73; PULSE 103; RESP 18; TEMP 36.9; O2SAT 96
--- NOTE | 2024-11-27 18:47 | PC.NURSE ---
patient a&ox3, vss, rt arm in ems sling pt awaiting results of imaging. pt states without movement her rt elbow is not painful if the patient moves it is 10/10 pain. family at bedside, call melvin within reach, plan of care ongoing
[2024-11-27 20:07] VITALS: BP 170/84; PULSE 107; RESP 16; TEMP 36.4; O2SAT 96
[2024-11-27 20:15] VITALS: BP 170/84; PULSE 107; RESP 16; TEMP 36.4; O2SAT 96
== END 2024-11-27 20:16 | disposition home or self-care (01) ==
PROVIDERS: Emergency Provider Emergency Medicine; PCP Internal Medicine
DX: S59.901A Unspecified injury of right elbow, initial encounter (principal); W19.XXXA Unspecified fall, initial encounter; Y93.89 Activity, other specified; Y92.89 Other specified places as the place of occurrence of the external cause; Y99.8 Other external cause status
CPT/HCPCS: 73080; 73200; 99284

== ENCOUNTER → 2024-11-27 15:56 | Outpatient (BNV) | payer SELFPAY | PROVIDERS: PCP Internal Medicine; Visit Provider Radiology Diagnostic Radiology | DX: S42.401A Unspecified fracture of lower end of right humerus, initial encounter for closed fracture (principal); S59.901A Unspecified injury of right elbow, initial encounter; M25.521 Pain in right elbow; R22.31 Localized swelling, mass and lump, right upper limb | CPT/HCPCS: 73080; 73200 ==